=== PATIENT | female | born 1975 | race Caucasian/White ===

== ENCOUNTER 2017-08-11 19:59 | Inpatient (IN) | payer BC ==
[2017-08-11] MEDS ORDERED: SODIUM CHLORIDE 0.9% 1,000 ML IV STA ×2 (21:18)
[2017-08-11] MEDS ORDERED: HYDROmorphone 1 MG/ML 1 ML SYRINGE IVP STA (21:18)
[2017-08-11] MEDS ORDERED: metroNIDAZOLE-NS PMX 500 MG in SALINE 1 100ML.BAG IVPB STA (21:18)
[2017-08-11] MEDS ORDERED: ONDANSETRON 4 MG/2 ML VIAL IVP STA (21:18)
[2017-08-11] MEDS ORDERED: RX INFO: IV CONTRAST WAS GIVEN 1 EACH MISC MISCELLANE PRN (21:18)
[2017-08-11] MEDS ORDERED: metroNIDAZOLE 500 MG TAB PO STA (21:25)
[2017-08-11 21:58] LABS: Basophils % (A) 0 %; CH 31.4; CHCM 35.4; Eosinophils # (A) 0.1 k/uL (0-0.7); Eosinophils % (A) 1 %; HCT 38.1 % (34.0-46.0); HDW 2.88; HGB 12.8 gm/dL (11.4-16.0); Luc # (Auto) 0.06; Luc % (Auto) 1; Lymphocytes # (A) 0.8 k/uL (1.0-4.8); Lymphocytes % (A) 10 %; MCHC 33.7 g/dL (31.0-37.0); MCV 89.1 fL (80.0-100.0); Mean Platelet Volume 7.4; Monocytes # (A) 0.3 k/uL (0-1.0); Monocytes % (A) 4 %; Neutrophils # (A) 6.5 k/uL (1.3-7.7); Neutrophils % (A) 84 %; RBC 4.28 m/uL (3.80-5.40); RDW 15.4 % (11.5-15.5); WBC 7.7 k/uL (3.8-10.6); WBC (Perox) 8.34
[2017-08-11 22:07] LABS: ALT 34 U/L (9-52); AST 24 U/L (14-36); Alkaline Phosphatase 67 U/L (38-126); Amylase 34 U/L (30-110); Anion Gap 11 mmol/L; Appearance,Urine Cloudy (Clear); Bacteria,Urine Rare /hpf; Bilirubin,Urine Negative (Negative); Blood Urea Nitrogen 12 mg/dL (7-17); Calcium 9.2 mg/dL (8.4-10.2); Carbon Dioxide 21 mmol/L (22-30); Chloride 104 mmol/L (98-107); Glucose 120 mg/dL (74-99); Glucose,Urine (UA) Negative (Negative); Ketones,Urine Trace (Negative); Leukocyte Esterase,Urine Moderate (Negative); Mucus,Urine Occasional /hpf; Nitrite,Urine Negative (Negative); Non-African American GFR(MDRD) >60 (>60 ml/min/1.73 sqM); PH, Urine 5.5 (5.0-8.0); Particle Count 9858; Protein,Urine Trace (Negative); RBC,Urine 1 /hpf (0-5); Sodium 136 mmol/L (137-145); Specific Gravity,Urine 1.025 (1.001-1.035); Squamous Epithelial Cell,Urine 8 /hpf (0-4); Total Bilirubin 0.6 mg/dL (0.2-1.3); UA Billing (MACRO vs. MICRO) MICRO; Urobilinogen,Urine <2.0 mg/dL (<2.0); WBC,Urine 8 /hpf (0-5)
--- NOTE | 2017-08-11 22:08 | ED ---
Abdominal Pain HPI - General Chief Complaint: Abdominal Pain Stated Complaint: Abd Pain Time Seen by Provider: 08/11/17 21:10 Source: patient Mode of arrival: ambulatory Limitations: no limitations - History of Present Illness Initial Comments: 42 years old female presented with right lower quadrant pain since 4:30 AM, she also had some pain around the umbilicus, been nauseous throughout multiple times. She had a family doctor today was sent to ER for further evaluation thinking about possible appendicitis. She had a fever or had chills and nausea and vomiting she also history of ovarian cysts she denies any history of kidney stones denies any diarrhea or constipation. History is unremarkable otherwise - Related Data Home Medications Medication Instructions Recorded Confirmed Norethindrone-E.estradiol-Iron 1 tab PO DAILY 08/11/17 08/11/17 [Junel Fe 1 mg-20 Mcg Tablet] Allergies Allergy/AdvReac Type Severity Reaction Status Date / Time Penicillins Allergy Anaphylaxis Verified 08/11/17 21:27 Sulfa (Sulfonamide Allergy Rash/Hives Verified 08/11/17 21:27 Antibiotics) Review of Systems ROS Statement: Those systems with pertinent positive or pertinent negative responses have been documented in the HPI. ROS Other: All systems not noted in ROS Statement are negative. Past Medical History Past Medical History: Asthma, Diabetes Mellitus History of Any Multi-Drug Resistant Organisms: None Reported Past Surgical History: Orthopedic Surgery Additional Past Surgical History / Comment(s): left wrist Past Psychological History: No Psychological Hx Reported Smoking Status: Former smoker Past Alcohol Use History: None Reported Past Drug Use History: None Reported General Exam - General Exam Comments Initial Comments: General: The patient is awake and alert, in severe distress Skin: Skin is warm and dry and no rashes or lesions are noted. Eye: Pupils are equal, round and reactive to light, extra-ocular movements are intact; there is normal conjunctiva bilaterally. Ears, nose, mouth and throat: There are moist mucous membranes and no oral lesions. Neck: The neck is supple, there is no tenderness or JVD. Cardiovascular: There is a regular rate and rhythm. No murmur, rub or gallop is appreciated. Respiratory: To auscultation bilateral, no wheezing no rhonchi no distress respiratory chang noticed Gastrointestinal: Tender in the right lower quadrant area as well as paraumbilical area positive bowel sounds no guarding no rebounds Back: There is no tenderness to palpation in the midline. There is no obvious deformity. Musculoskeletal: Normal ROM, no tenderness, There is no pedal edema. There is no calf tenderness or swelling. No cords were appreciated. Neurological: CN II-XII intact, Cranial nerves III through XII are intact. There are no obvious motor or sensory deficits. Coordination appears grossly intact. Speech is normal. Psychiatric: Cooperative, appropriate mood & affect, normal judgment. Limitations: no limitations Course Vital Signs 08/11/17 08/11/17 08/11/17 21:11 21:52 23:00 Temperature 98.9 F Pulse Rate 116 H 105 H 96 Respiratory 18 16 16 Rate Blood Pressure 157/92 124/70 140/79 O2 Sat by Pulse 96 96 98 Oximetry Vision was reassessed at 2315, CT of the abdomen showed right lower quadrant mesenteric soft tissue stranding and hazy opacity suggesting present headache inflammatory and advance changes and may reflect inflammatory changes of the base anteriorly and recommended short-term CT follow-up, these findings were discussed with the Dr. Lundy general surgeon physics and astronomy professor today he agreed for her overnight admission for CBC, urinalysis and chemistry are within normal range though C-reactive protein is elevated Medical Decision Making - Lab Data Result diagrams: 08/11/17 21:30 08/11/17 21:30 Lab Results 08/11/17 08/11/17 08/11/17 Range/Units 21:30 21:30 21:30 WBC 7.7 (3.8-10.6) k/uL RBC 4.28 (3.80-5.40) m/uL Hgb 12.8 (11.4-16.0) gm/dL Hct 38.1 (34.0-46.0) % MCV 89.1 (80.0-100.0) fL MCH 30.0 (25.0-35.0) pg MCHC 33.7 (31.0-37.0) g/dL RDW 15.4 (11.5-15.5) % Plt Count 246 (150-450) k/uL Neutrophils % 84 % Lymphocytes % 10 % Monocytes % 4 % Eosinophils % 1 % Basophils % 0 % Neutrophils # 6.5 (1.3-7.7) k/uL Lymphocytes # 0.8 L (1.0-4.8) k/uL Monocytes # 0.3 (0-1.0) k/uL Eosinophils # 0.1 (0-0.7) k/uL Basophils # 0.0 (0-0.2) k/uL Sodium 136 L (137-145) mmol/L Potassium 4.0 (3.5-5.1) mmol/L Chloride 104 (98-107) mmol/L Carbon Dioxide 21 L (22-30) mmol/L Anion Gap 11 mmol/L BUN 12 (7-17) mg/dL Creatinine 0.64 (0.52-1.04) mg/dL Est GFR (MDRD) Af Amer >60 (>60 ml/min/1.73 sqM) Est GFR (MDRD) Non-Af >60 (>60 ml/min/1.73 sqM) Glucose 120 H (74-99) mg/dL Calcium 9.2 (8.4-10.2) mg/dL Total Bilirubin 0.6 (0.2-1.3) mg/dL AST 24 (14-36) U/L ALT 34 (9-52) U/L Alkaline Phosphatase 67 (38-126) U/L C-Reactive Protein (<10.0) mg/L Total Protein 7.0 (6.3-8.2) g/dL Albumin 4.1 (3.5-5.0) g/dL Amylase 34 (30-110) U/L Lipase 106 (23-300) U/L Urine Color Yellow Urine Appearance Cloudy H (Clear) Urine pH 5.5 (5.0-8.0) Ur Specific [place] 1.025 (1.001-1.035) Urine Protein Trace H (Negative) Urine Glucose (UA) Negative (Negative) Urine Ketones Trace H (Negative) Urine Blood Negative (Negative) Urine Nitrite Negative (Negative) Urine Bilirubin Negative (Negative) Urine Urobilinogen <2.0 (<2.0) mg/dL Ur Leukocyte Esterase Moderate H (Negative) Urine RBC 1 (0-5) /hpf Urine WBC 8 H (0-5) /hpf Ur Squamous Epith Cells 8 H (0-4) /hpf Urine Bacteria Rare H (None) /hpf Urine Mucus Occasional H (None) /hpf Urine HCG, Qual (Not Detectd) 08/11/17 08/11/17 Range/Units 21:30 21:30 WBC (3.8-10.6) k/uL RBC (3.80-5.40) m/uL Hgb (11.4-16.0) gm/dL Hct (34.0-46.0) % MCV (80.0-100.0) fL MCH (25.0-35.0) pg MCHC (31.0-37.0) g/dL RDW (11.5-15.5) % Plt Count (150-450) k/uL Neutrophils % % Lymphocytes % % Monocytes % % Eosinophils % % Basophils % % Neutrophils # (1.3-7.7) k/uL Lymphocytes # (1.0-4.8) k/uL Monocytes # (0-1.0) k/uL Eosinophils # (0-0.7) k/uL Basophils # (0-0.2) k/uL Sodium (137-145) mmol/L Potassium (3.5-5.1) mmol/L Chloride (98-107) mmol/L Carbon Dioxide (22-30) mmol/L Anion Gap mmol/L BUN (7-17) mg/dL Creatinine (0.52-1.04) mg/dL Est GFR (MDRD) Af Amer (>60 ml/min/1.73 sqM) Est GFR (MDRD) Non-Af (>60 ml/min/1.73 sqM) Glucose (74-99) mg/dL Calcium (8.4-10.2) mg/dL Total Bilirubin (0.2-1.3) mg/dL AST (14-36) U/L ALT (9-52) U/L Alkaline Phosphatase (38-126) U/L C-Reactive Protein 51.2 H (<10.0) mg/L Total Protein (6.3-8.2) g/dL Albumin (3.5-5.0) g/dL Amylase (30-110) U/L Lipase (23-300) U/L Urine Color Urine Appearance (Clear) Urine pH (5.0-8.0) Ur Specific [place] (1.001-1.035) Urine Protein (Negative) Urine Glucose (UA) (Negative) Urine Ketones (Negative) Urine Blood (Negative) Urine Nitrite (Negative) Urine Bilirubin (Negative) Urine Urobilinogen (<2.0) mg/dL Ur Leukocyte Esterase (Negative) Urine RBC (0-5) /hpf Urine WBC (0-5) /hpf Ur Squamous Epith Cells (0-4) /hpf Urine Bacteria (None) /hpf Urine Mucus (None) /hpf Urine HCG, Qual Not Detected (Not Detectd) Disposition Clinical Impression: Right lower quadrant pain Disposition: ADMITTED IP TO THIS HOSP Condition: Good Referrals: Baldomero Truong MD [Primary Care Provider] - 1-2 days
--- NOTE | 2017-08-11 23:38 | CT ---
EXAM: CT Abdomen and Pelvis With Intravenous Contrast CLINICAL HISTORY: Reason: abdominal pain TECHNIQUE: Axial computed tomography images of the abdomen and pelvis with intravenous contrast. CTDI is 51.4 mGy and DLP is 2236 mGy-cm. This CT exam was performed using one or more of the following dose reduction techniques: automated exposure control, adjustment of the mA and/or kV according to patient size, and/or use of iterative reconstruction technique. COMPARISON: No relevant prior studies available. FINDINGS: Lower thorax: No acute findings. ABDOMEN: Liver: Fatty infiltration of the liver Gallbladder and bile ducts: Unremarkable. No calcified stones. No ductal dilation. Pancreas: Unremarkable. No mass. No ductal dilation. Spleen: Hypodense area within the spleen measuring 1.1 cm which is a nonspecific finding Adrenals: Unremarkable. No mass. Kidneys and ureters: No evidence of renal calculi or hydronephrosis. Small subcentimeter low-density lung mid zone to lower pole right kidney suggesting probable very small renal cyst, but too small for definitive CT characterization. Stomach and bowel: No evidence of bowel obstruction or pneumoperitoneum. Scattered colonic diverticulosis. No definite evidence of diverticulitis, although colonic evaluation is somewhat limited due to nondistention of colon. Focal confluence of nondilated small bowel loops in the left upper pelvis which is nonspecific. No definite focal mass identified although evaluation somewhat limited due to lack of GI contrast Appendix: Normal appendix PELVIS: Bladder: Unremarkable. No mass. Reproductive: Unremarkable as visualized. ABDOMEN and PELVIS: Intraperitoneal space: There is mild soft tissue stranding and hazy opacity involving mesentery extending to the right lower quadrant suggesting mesenteric inflammatory or dense changes. There are several very small subcentimeter lymph nodes most likely reactive. Bones/joints: No acute bony abnormalities. Soft tissues: Small fat-containing umbilical hernia. Vasculature: Unremarkable. No abdominal aortic aneurysm. Lymph nodes: No enlarged lymph nodes. IMPRESSION: Right lower quadrant mesenteric soft tissue stranding and hazy opacity suggesting mesenteric inflammatory or edematous changes which are nonspecific and may reflect mesenteritis. Clinical correlation and short- term CT follow-up recommended. No evidence of bowel obstruction or pneumoperitoneum. Normal-appearing appendix identified. Small splenic low density lesion which is nonspecific possibly representing splenic cyst Colonic diverticulosis without evidence of diverticulitis. [employer] 08/11/17 23:53 Verify Receipt Verified receipt with Dr. Fine on 08/11 23:51 (-04:00)
[2017-08-12] MEDS ORDERED: ONDANSETRON 4 MG/2 ML VIAL IVP PRN (00:31)
[2017-08-12] MEDS ORDERED: NALOXONE 0.4 MG/ML 1 ML VIAL IV PRN (00:31)
[2017-08-12] MEDS ORDERED: HYDROmorphone 1 MG/ML 1 ML SYRINGE IV PRN (00:31)
[2017-08-12 01:25] VITALS: RESP 18
[2017-08-12 01:27] VITALS: BMI 40.4
[2017-08-12 01:36] LABS: Glucose,Whole Blood 108 mg/dL (75-99)
[2017-08-12 07:00] LABS: Glucose,Whole Blood 130 mg/dL (75-99)
[2017-08-12 08:10] VITALS: BP 137/87; PULSE 96; TEMP 97.8
[2017-08-12] MEDS ORDERED: ACETAMINOPHEN TAB 325 MG TAB PO PRN (10:29)
--- NOTE | 2017-08-12 11:44 | P.GSHP ---
<Samanta Rodgers - Last Filed: 08/12/17 11:36> History of Present Illness H&P Date: 08/12/17 Chief Complaint: Abdominal pain 42-year-old female presented with right lower quadrant pain onset 4:30 in the morning. Patient stated the pain went around the umbilicus. Patient states she became nauseated multiple times but did not vomit. Patient stated she contact her family doctor who advised the patient to come to the emergency room for further evaluation. Patient stated history of ovarian cyst.,and Kidney stone. reported no fever chills. Patient stated that she did have an episode last week after having 2 bowel movements noted bright red blood in the toilet bowl movement was painless . Patient stated that no been no further episodes . Patient states she has never had a colonoscopy. Subsequent the patient was seen in the emergency room. CAT scan of the abdomen and pelvis showed a right lower quadrant soft tissue straining suggesting inflammatory. Dr. Bazzi did review the CAT scan of the abdomen pelvis felt there was no acute surgical intervention and there was no acute abdomen. Patient was admitted to the services of the attending. IV hydration was initiated. Hemoglobin stable at 12.8 . - Review of Systems Comment: Essentially unremarkable except as mentioned in the present illness Past Medical History Past Medical History: Asthma, Diabetes Mellitus History of Any Multi-Drug Resistant Organisms: None Reported Past Surgical History: Orthopedic Surgery Additional Past Surgical History / Comment(s): left wrist Past Psychological History: No Psychological Hx Reported Smoking Status: Never smoker Past Alcohol Use History: None Reported Past Drug Use History: None Reported Medications and Allergies Home Medications Medication Instructions Recorded Confirmed Type RX: Norethindrone-E.estradiol-Iron 1 tab PO DAILY 08/11/17 08/11/17 History [Junel Fe 1 mg-20 Mcg Tablet] Allergies Allergy/AdvReac Type Severity Reaction Status Date / Time Penicillins Allergy Anaphylaxis Verified 08/11/17 21:27 Sulfa (Sulfonamide Allergy Rash/Hives Verified 08/11/17 21:27 Antibiotics) Surgical - Exam Vital Signs Temp Pulse Resp BP Pulse Ox 98.9 F 116 H 18 157/92 96 08/11/17 21:11 08/11/17 21:11 08/11/17 21:11 08/11/17 21:11 08/11/17 21:11 GENERAL APPEARANCE: 42-year-old female patient is alert, oriented, in no acute distress. VITAL SIGNS: Reviewed HEENT: Head is normocephalic and atraumatic. Pupils are equal and reactive. The nares are patent. Oropharynx is clear without lesions. NECK: Supple without lymphadenopathy. Traches midline. HEART: S1, S2. Regular rate and rhythm. Denying chest pain no murmur LUNGS: No crackles or wheezes are heard. Adequate air movement bilaterally ABDOMEN: Soft, nontender, nondistended with good bowel sounds. No peritoneal signs. No palpable organomegaly or masses. EXTREMITIES: Normal skin color and turgor. No cyanosis, rash, ulceration, clubbing or edema. Radial pedal pulses are 2/4 bilaterally. NEUROLOGICAL: No focal deficits. Strength and sensation are grossly intact. Results - Labs 08/11/17 21:30 08/11/17 21:30 Abnormal Lab Results - Last 24 Hours (Table) 08/11/17 08/11/17 08/11/17 Range/Units 21:30 21:30 21:30 Lymphocytes # 0.8 L (1.0-4.8) k/uL Sodium 136 L (137-145) mmol/L Carbon Dioxide 21 L (22-30) mmol/L Glucose 120 H (74-99) mg/dL POC Glucose (mg/dL) (75-99) mg/dL C-Reactive Protein (<10.0) mg/L Urine Appearance Cloudy H (Clear) Urine Protein Trace H (Negative) Urine Ketones Trace H (Negative) Ur Leukocyte Esterase Moderate H (Negative) Urine WBC 8 H (0-5) /hpf Ur Squamous Epith Cells 8 H (0-4) /hpf Urine Bacteria Rare H (None) /hpf Urine Mucus Occasional H (None) /hpf 08/11/17 08/12/17 08/12/17 Range/Units 21:30 01:33 06:57 Lymphocytes # (1.0-4.8) k/uL Sodium (137-145) mmol/L Carbon Dioxide (22-30) mmol/L Glucose (74-99) mg/dL POC Glucose (mg/dL) 108 H 130 H (75-99) mg/dL C-Reactive Protein 51.2 H (<10.0) mg/L Urine Appearance (Clear) Urine Protein (Negative) Urine Ketones (Negative) Ur Leukocyte Esterase (Negative) Urine WBC (0-5) /hpf Ur Squamous Epith Cells (0-4) /hpf Urine Bacteria (None) /hpf Urine Mucus (None) /hpf Diabetes panel 08/11/17 Range/Units 21:30 Sodium 136 L (137-145) mmol/L Potassium 4.0 (3.5-5.1) mmol/L Chloride 104 (98-107) mmol/L Carbon Dioxide 21 L (22-30) mmol/L BUN 12 (7-17) mg/dL Creatinine 0.64 (0.52-1.04) mg/dL Glucose 120 H (74-99) mg/dL Calcium 9.2 (8.4-10.2) mg/dL AST 24 (14-36) U/L ALT 34 (9-52) U/L Alkaline Phosphatase 67 (38-126) U/L Total Protein 7.0 (6.3-8.2) g/dL Albumin 4.1 (3.5-5.0) g/dL Calcium panel 08/11/17 Range/Units 21:30 Calcium 9.2 (8.4-10.2) mg/dL Albumin 4.1 (3.5-5.0) g/dL Pituitary panel 08/11/17 Range/Units 21:30 Sodium 136 L (137-145) mmol/L Potassium 4.0 (3.5-5.1) mmol/L Chloride 104 (98-107) mmol/L Carbon Dioxide 21 L (22-30) mmol/L BUN 12 (7-17) mg/dL Creatinine 0.64 (0.52-1.04) mg/dL Glucose 120 H (74-99) mg/dL Calcium 9.2 (8.4-10.2) mg/dL Adrenal panel 08/11/17 Range/Units 21:30 Sodium 136 L (137-145) mmol/L Potassium 4.0 (3.5-5.1) mmol/L Chloride 104 (98-107) mmol/L Carbon Dioxide 21 L (22-30) mmol/L BUN 12 (7-17) mg/dL Creatinine 0.64 (0.52-1.04) mg/dL Glucose 120 H (74-99) mg/dL Calcium 9.2 (8.4-10.2) mg/dL Total Bilirubin 0.6 (0.2-1.3) mg/dL AST 24 (14-36) U/L ALT 34 (9-52) U/L Alkaline Phosphatase 67 (38-126) U/L Total Protein 7.0 (6.3-8.2) g/dL Albumin 4.1 (3.5-5.0) g/dL Assessment and Plan Plan: Impression Present on admission right lower quadrant pain nausea vomiting suspect gastroenteritis not ruled out Episode week prior painless bright red rectal bleeding after bowel movement CAT scan abdomen and pelvis: Diverticulosis no evidence of diverticulitis CAT scan abdomen and pelvis soft mild tissue straining and hazy opacity involving mesentery extending to the right colon suggesting inflammatory are dense changes Plan Dr. bazzi discuss with the patient and patient's mother no surgical intervention at this time Advance diet if tolerated will prepped for discharge today Patient will need to be scheduled in the outpatient setting to undergo colonoscopy this can be arranged by patient's primary doctor Dr. Truong Resume home meds as appropriate IV hydration Prepped for discharge The above impression and plan of care have been discussed and directed by signing physician. Samanta Rodgers nurse practitioner acting as scribe for signing physician. <Remy Bazzi W - Last Filed: 08/13/17 10:29> Surgical - Exam Vital Signs Temp Pulse Resp BP Pulse Ox 98.9 F 116 H 18 157/92 96 08/11/17 21:11 08/11/17 21:11 08/11/17 21:11 08/11/17 21:11 08/11/17 21:11 Results - Labs 08/11/17 21:30 08/11/17 21:30 Microbiology - Last 24 Hours (Table) 08/11/17 21:30 Blood Culture - Preliminary Blood No Growth after 24 hours
--- NOTE | 2017-08-12 11:49 | P.DS ---
Providers Date of admission: 08/12/17 00:31 Expected date of discharge: 08/12/17 Attending physician: Remy Lundy Primary care physician: Baldomero Truong [facility] Course: 42-year-old female presented to the emergency room to be evaluated for chief complaint of sudden onset right lower quadrant pain radiating around the umbilicus with nausea vomiting sensation. Additionally patient stated that week prior she had 2 bowel movements were painless did note bright red blood in the toilet bowl no prior episode no further episodes as well patient was seen in the emergency room evaluated CAT scan of the abdomen pelvis did not show any acute findings did suggest an inflammatory changes no evidence of diverticulitis no evidence of an acute abdomen. Hemoglobin was stable at 12.8. Patient symptoms had resolved on the day of discharge patient denied any right lower quadrant pain was tolerating a full diet was anxious to be discharged home. Patient is aware that she needs to schedule colonoscopy to be done in the outpatient setting this can be arranged by Dr. Truong office subsequently the patient was felt to be hemodynamically stable and appropriate proceed with a discharge to home Impression Present on admission right lower quadrant pain nausea vomiting suspect gastroenteritis not ruled out Episode week prior painless bright red rectal bleeding after bowel movement CAT scan abdomen and pelvis: Diverticulosis no evidence of diverticulitis CAT scan abdomen and pelvis soft mild tissue straining and hazy opacity involving mesentery extending to the right colon suggesting inflammatory are dense changes The above impression and plan of care have been discussed and directed by signing physician. Samanta Rodgers nurse practitioner acting as scribe for signing physician. Patient Condition at Discharge: Good Plan - Discharge Summary New Discharge Prescriptions: Continue RX: Norethindrone-E.estradiol-Iron [Junel Fe 1 mg-20 Mcg Tablet] 1 tab PO DAILY Discharge Medication List RX: Norethindrone-E.estradiol-Iron [Junel Fe 1 mg-20 Mcg Tablet] 1 tab PO DAILY 08/11/17 [History] Follow up Appointment(s)/Referral(s): Baldomero Truong MD [Primary Care Provider] - 1-2 days Discharge Disposition: HOME SELF-CARE
== END 2017-08-12 11:55 | disposition home or self-care (01) | DRG 392 ==
LOC: EC 19:59 → 4MS4W 08-12 00:31
PROVIDERS: ADMIT Surgery; ATTEND Surgery
DX: K52.9 Noninfective gastroenteritis and colitis, unspecified (principal); E11.9 Type 2 diabetes mellitus without complications; J45.909 Unspecified asthma, uncomplicated; K57.90 Diverticulosis of intestine, part unspecified, without perforation or abscess without bleeding; N83.209 Unspecified ovarian cyst, unspecified side; Z87.442 Personal history of urinary calculi; Z87.891 Personal history of nicotine dependence; Z88.0 Allergy status to penicillin; Z88.2 Allergy status to sulfonamides
CPT/HCPCS: 36415; 74177; 80053; 81001; 81025; 82150; 83690; 85025; 86140; 87040; 96361; 96365; 96375; 99285

== ENCOUNTER 2018-07-06 22:55 | Emergency (ER) | payer BC ==
[2018-07-06 23:08] VITALS: TEMP 98.3
--- NOTE | 2018-07-06 23:51 | ED ---
General Adult HPI - General Chief complaint: Extremity Injury, Upper Stated complaint: right hand pain Time Seen by Provider: 07/06/18 23:39 Source: patient Mode of arrival: ambulatory Limitations: no limitations - History of Present Illness Initial comments: Judie is a previously healthy right hand dominant 43-year-old female who presents to the ED for evaluation of right hand pain after a fall. Patient reports that she had a mechanical trip and fall in which she put her right hand out falling onto her right hand. She is experiencing significant pain in her right thenar eminence and right wrist. She denies any other injuries. - Related Data Home Medications Medication Instructions Recorded Confirmed Norethindrone-E.estradiol-Iron 1 tab PO DAILY 08/11/17 08/11/17 [Junel Fe 1 mg-20 Mcg Tablet] Allergies Allergy/AdvReac Type Severity Reaction Status Date / Time Penicillins Allergy Anaphylaxis Verified 07/06/18 23:08 Sulfa (Sulfonamide Allergy Rash/Hives Verified 07/06/18 23:08 Antibiotics) Review of Systems ROS Statement: Those systems with pertinent positive or pertinent negative responses have been documented in the HPI. ROS Other: All systems not noted in ROS Statement are negative. Past Medical History Past Medical History: Asthma, Diabetes Mellitus History of Any Multi-Drug Resistant Organisms: None Reported Past Surgical History: Orthopedic Surgery Additional Past Surgical History / Comment(s): left wrist Past Psychological History: No Psychological Hx Reported Smoking Status: Never smoker Past Alcohol Use History: None Reported Past Drug Use History: None Reported General Exam Limitations: no limitations General appearance: alert, in no apparent distress Head exam: Present: atraumatic, normocephalic Eye exam: Present: PERRL ENT exam: Present: normal exam Neck exam: Present: normal inspection. Absent: tenderness Respiratory exam: Absent: respiratory distress Cardiovascular Exam: Present: regular rate, normal rhythm GI/Abdominal exam: Present: soft. Absent: distended Rectal exam: Present: deferred Extremities exam: Present: tenderness (Tenderness to palpation of right wrist), normal capillary refill Neurological exam: Present: alert, oriented X3 Psychiatric exam: Present: normal affect, normal mood Skin exam: Present: warm, dry, intact Course Vital Signs 07/06/18 07/07/18 23:05 01:13 Temperature 98.3 F 98.3 F Pulse Rate 107 H 98 Respiratory 16 17 Rate Blood Pressure 163/103 165/100 O2 Sat by Pulse 98 98 Oximetry Procedures - Orthopedic Splinting/Casting Injury #1 Side: right Upper Extremity Immobilizer: thumb spica Medical Decision Making - Medical Decision Making Carey is obtained from the patient, patient with mechanical trip and fall onto her right outstretched hand, pain in the right hand and wrist X-rays and no obvious fracture Patient with persistent pain, patient was placed in a thumb spica splint and advised that if she has persistent pain after 72 hours to follow-up with PCP for repeat imaging Possibility of occult fracture was discussed with the patient, the importance of follow-up and repeat imaging for persistent pain was discussed. Risk of avascular necrosis for untreated fracture was discussed. All questions pertaining care were answered best my ability patient was discharged home with her right hand in a thumb spica splint. Disposition Clinical Impression: Wrist sprain Disposition: HOME SELF-CARE Instructions: Wrist Injury (ED) Additional Instructions: If you have persistent pain in the right wrist follow-up with her PCP or return to the ER in 3 days for repeat x-rays Is patient prescribed a controlled substance at d/c from ED?: No Referrals: Baldomero Truong MD [Primary Care Provider] - 1-2 days Time of Disposition: 00:50
--- NOTE | 2018-07-07 00:20 | XR ---
EXAMINATION TYPE: XR hand complete RT DATE OF EXAM: 07/07/2018 COMPARISON: NONE HISTORY: Pain TECHNIQUE: 3 views FINDINGS: I see no fracture nor dislocation. Joint spaces are normal. Some appears intact. IMPRESSION: Negative right hand exam.
--- NOTE | 2018-07-07 00:21 | XR ---
EXAMINATION TYPE: XR wrist complete RT DATE OF EXAM: 07/07/2018 COMPARISON: NONE HISTORY: Wrist pain TECHNIQUE: 4 views FINDINGS: There is no sign of fracture nor dislocation. Joint spaces are normal. Scaphoid is intact. IMPRESSION: Negative right wrist exam.
[2018-07-07 01:18] VITALS: BP 165/100; PULSE 98; RESP 17
== END 2018-07-07 01:18 | disposition home or self-care (01) ==
LOC: EC 22:55
DX: S63.501A Unspecified sprain of right wrist, initial encounter (principal); Z79.3 Long term (current) use of hormonal contraceptives; Z88.0 Allergy status to penicillin; Z88.2 Allergy status to sulfonamides; W01.0XXA Fall on same level from slipping, tripping and stumbling without subsequent striking against object, initial encounter; Y92.009 Unspecified place in unspecified non-institutional (private) residence as the place of occurrence of the external cause
CPT/HCPCS: 29125; 99283

== ENCOUNTER → 2018-07-14 | Outpatient (CLI) | payer BC ==
[2018-07-14 11:16] LABS: Basophils % (A) 0 %; Eosinophils # (A) 0.1 k/uL (0-0.7); Eosinophils % (A) 1 %; HCT 41.8 % (34.0-46.0); HGB 13.1 gm/dL (11.4-16.0); Lymphocytes # (A) 1.8 k/uL (1.0-4.8); Lymphocytes % (A) 22 %; MCH 28.6 pg (25.0-35.0); MCHC 31.4 g/dL (31.0-37.0); MCV 91.1 fL (80.0-100.0); Mean Platelet Volume 6.4; Monocytes # (A) 0.4 k/uL (0-1.0); Monocytes % (A) 5 %; Neutrophils # (A) 5.7 k/uL (1.3-7.7); Neutrophils % (A) 70 %; Platelet Count 336 k/uL (150-450); RBC 4.59 m/uL (3.80-5.40); WBC 8.1 k/uL (3.8-10.6)
[2018-07-14 11:37] LABS: ALT 24 U/L (9-52); AST 17 U/L (14-36); Alkaline Phosphatase 59 U/L (38-126); Anion Gap 10 mmol/L; Blood Urea Nitrogen 13 mg/dL (7-17); Calcium 9.3 mg/dL (8.4-10.2); Carbon Dioxide 21 mmol/L (22-30); Chloride 107 mmol/L (98-107); Cholesterol 147 mg/dL (<200); Glucose 140 mg/dL (74-99); HDL Cholesterol 37 mg/dL (40-60); LDL Cholesterol,Calculated 49 mg/dL (0-99); Potassium 4.8 mmol/L (3.5-5.1); Sodium 138 mmol/L (137-145); Total Bilirubin 0.4 mg/dL (0.2-1.3); Total Protein 6.9 g/dL (6.3-8.2); Triglycerides 306 mg/dL (<150)
== END | disposition home or self-care (01) ==
LOC: LABWHC1 10:22
PROVIDERS: ATTEND Family Medicine
DX: Z00.00 Encounter for general adult medical examination without abnormal findings (principal)
CPT/HCPCS: 36415; 80053; 80061; 84443; 85025

== ENCOUNTER → 2019-04-22 | Outpatient (CLI) | payer BC ==
[2019-04-22 11:34] LABS: Basophils % (A) 1 %; Eosinophils # (A) 0.1 k/uL (0-0.7); Eosinophils % (A) 1 %; HCT 47.2 % (34.0-46.0); HGB 14.8 gm/dL (11.4-16.0); Lymphocytes # (A) 1.2 k/uL (1.0-4.8); Lymphocytes % (A) 21 %; MCH 28.5 pg (25.0-35.0); MCHC 31.3 g/dL (31.0-37.0); MCV 91.1 fL (80.0-100.0); Mean Platelet Volume 7.1; Monocytes # (A) 0.3 k/uL (0-1.0); Monocytes % (A) 6 %; Neutrophils # (A) 3.8 k/uL (1.3-7.7); Neutrophils % (A) 69 %; Platelet Count 292 k/uL (150-450); RBC 5.18 m/uL (3.80-5.40); RDW 14.5 % (11.5-15.5); WBC 5.5 k/uL (3.8-10.6)
[2019-04-22 16:07] LABS: Albumin 4.5 g/dL (3.80-4.90); Albumin/Globulin Ratio 2.14 (1.60-3.17); Anion Gap 13.2 mmol/L (4.00-12.00); Calcium 9.3 mg/dL (8.7-10.3); Carbon Dioxide 17.8 mmol/L (21.6-31.8); Globulin 2.1 g/dL (1.6-3.3); Potassium 4.2 mmol/L (3.5-5.5); Total Bilirubin 0.4 mg/dL (0.2-1.2); Total Protein 6.6 g/dL (6.2-8.2)
== END | disposition home or self-care (01) ==
LOC: LABWHC1 09:57
PROVIDERS: ATTEND Family Medicine
DX: Z00.00 Encounter for general adult medical examination without abnormal findings (principal)
CPT/HCPCS: 36415; 80053; 80061; 84443; 85025

== ENCOUNTER 2019-09-27 02:29 | Emergency (ER) | payer BC ==
[2019-09-27] MEDS ORDERED: diphenhydrAMINE 50 MG/ML 1 ML VIAL IVP STA (02:51)
[2019-09-27] MEDS ORDERED: methylPREDNISolone SOD SUCCI 125 MG/2 ML VIAL IV STA (02:51)
[2019-09-27] MEDS ORDERED: FAMOTIDINE 20 MG/2 ML VIAL IV STA (02:51)
--- NOTE | 2019-09-27 05:36 | ED ---
Allergic Reaction HPI - General Chief complaint: Allergic Reaction Stated complaint: Allergic reaction,DOUG, lip swelling Time Seen by Provider: 09/27/19 02:38 Source: patient Mode of arrival: ambulatory Limitations: no limitations - History of Present Illness Initial Comments: This patient is a 44-year-old woman who presents to be valid for upper lip sw elling. The patient states that this came on approximately 1-2 hours ago. She did try taking some Benadryl at home but felt like the swelling was only increasing. She states that she did have a similar episode of this about a year ago and states that it only resolved after she was given dose of epinephrine. The patient does take low-dose lisinopril. She is not having any other symptoms, no cough or throat swelling. No dyspnea. No nausea or vomiting. No urticaria or pruritus. MD Complaint: facial swelling -: hour(s) Exposure: unknown Symptoms: lip swelling Severity: moderate Treatment Prior to Arrival: benadryl Previous Allergy History: angioedema - Related Data Home Medications Medication Instructions Recorded Confirmed Norethindrone-E.estradiol-Iron 1 tab PO DAILY 08/11/17 08/11/17 [Junel Fe 1 mg-20 Mcg Tablet] Previous Rx's Medication Instructions Recorded predniSONE 60 mg PO DAILY #30 tab 09/27/19 Allergies Allergy/AdvReac Type Severity Reaction Status Date / Time Penicillins Allergy Anaphylaxis Verified 09/27/19 02:35 Sulfa (Sulfonamide Allergy Rash/Hives Verified 09/27/19 02:35 Antibiotics) Review of Systems ROS Statement: Those systems with pertinent positive or pertinent negative responses have been documented in the HPI. ROS Other: All systems not noted in ROS Statement are negative. Constitutional: Denies: fever, chills ENT: Denies: throat pain, congestion Respiratory: Denies: cough, dyspnea, wheezes Cardiovascular: Denies: palpitations Gastrointestinal: Denies: nausea, vomiting, diarrhea Skin: Denies: rash Neurological: Denies: headache Past Medical History Past Medical History: Asthma, Diabetes Mellitus, Hypertension History of Any Multi-Drug Resistant Organisms: None Reported Past Surgical History: Orthopedic Surgery Additional Past Surgical History / Comment(s): left wrist, Past Psychological History: No Psychological Hx Reported Smoking Status: Never smoker Past Alcohol Use History: None Reported Past Drug Use History: None Reported General Exam Limitations: no limitations General appearance: alert, in no apparent distress Head exam: Present: atraumatic, normocephalic Eye exam: Present: normal appearance. Absent: scleral icterus, conjunctival injection ENT exam: Present: other (Patient does have some angioedema involving the left side of the upper lip. No intraoral swelling or tongue swelling. No submandibular or neck fullness.) Neck exam: Present: normal inspection Respiratory exam: Present: normal lung sounds bilaterally. Absent: respiratory distress, wheezes, rales, rhonchi, stridor Cardiovascular Exam: Present: regular rate, normal rhythm, normal heart sounds. Absent: systolic murmur, diastolic murmur, rubs, gallop GI/Abdominal exam: Present: soft. Absent: tenderness Extremities exam: Present: normal inspection Neurological exam: Present: alert Skin exam: Present: warm, dry, intact, normal color. Absent: rash Course Vital Signs 09/27/19 09/27/19 09/27/19 02:32 05:45 05:51 Temperature 97.6 F 98.1 F Pulse Rate 95 90 93 Respiratory 18 17 18 Rate Blood Pressure 148/83 116/73 O2 Sat by Pulse 99 97 97 Oximetry Disposition Clinical Impression: Angioedema Disposition: HOME SELF-CARE Condition: Good Instructions (If sedation given, give patient instructions): Angioedema (ED) Prescriptions: predniSONE 60 mg PO DAILY #30 tab Is patient prescribed a controlled substance at d/c from ED?: No Referrals: Baldomero Truong MD [Primary Care Provider] - 1-2 days
[2019-09-27] MEDS ORDERED: EPINEPHrine 1 MG/ML 1 ML AMP SQ STA (05:37)
[2019-09-27 05:52] VITALS: TEMP 98.1
[2019-09-27 06:16] VITALS: BP 120/76; PULSE 97; RESP 17
== END 2019-09-27 06:16 | disposition home or self-care (01) ==
LOC: EC 02:29
DX: T78.3XXA Angioneurotic edema, initial encounter (principal); Z79.3 Long term (current) use of hormonal contraceptives; Z88.0 Allergy status to penicillin; Z88.2 Allergy status to sulfonamides
CPT/HCPCS: 99284; 96374; 96375 ×2; 96372; J0171; J1200; J2930

== ENCOUNTER → 2020-05-13 | Outpatient (CLI) | payer BC ==
[2020-05-13 11:32] LABS: Basophils % (A) 1 %; Eosinophils # (A) 0.1 k/uL (0-0.7); Eosinophils % (A) 2 %; HGB 16.3 gm/dL (11.4-16.0); Lymphocytes # (A) 1.2 k/uL (1.0-4.8); Lymphocytes % (A) 24 %; MCH 31.4 pg (25.0-35.0); MCHC 33.9 g/dL (31.0-37.0); MCV 92.8 fL (80.0-100.0); Mean Platelet Volume 7.1; Monocytes # (A) 0.4 k/uL (0-1.0); Monocytes % (A) 7 %; Neutrophils # (A) 3.3 k/uL (1.3-7.7); Neutrophils % (A) 65 %; Platelet Count 261 k/uL (150-450); RBC 5.17 m/uL (3.80-5.40); RDW 13.4 % (11.5-15.5); WBC 5.2 k/uL (3.8-10.6)
[2020-05-13 15:53] LABS: African American GFR (CKD) 128.5 (60.0-200.0); Albumin 4.6 g/dL (3.80-4.90); Anion Gap 9.1 mmol/L (4.00-12.00); BUN/Creat Ratio 23.33 Ratio (12.00-20.00); Calcium 9.4 mg/dL (8.7-10.3); Carbon Dioxide 21.9 mmol/L (21.6-31.8); Chol/HDL Ratio 3.37; Globulin 2.3 g/dL (1.6-3.3); LDL Cholesterol,Calculated 79.8 mg/dL (0.0-131.0); Non-African American GFR(CKD) 110.9 (60.0-200.0); Potassium 4.4 mmol/L (3.5-5.5); Total Bilirubin 0.5 mg/dL (0.2-1.2); Total Protein 6.9 g/dL (6.2-8.2); VLDL Calculation 29.2 mg/dL (5.00-40.00)
[2020-05-13 18:02] LABS: Hemoglobin A1C 5.3 % (4.0-6.0)
== END ==
LOC: LABWHC1 10:42
PROVIDERS: ATTEND Family Medicine
DX: Z00.00 Encounter for general adult medical examination without abnormal findings (principal)
CPT/HCPCS: 36415; 80053; 80061; 83036; 84443; 85025

== ENCOUNTER → 2022-05-12 | Outpatient (CLI) | payer BC ==
--- NOTE | 2022-05-12 11:47 | US ---
EXAMINATION TYPE: US pelvic complete DATE OF EXAM: 05/12/2022 COMPARISON: NONE CLINICAL HISTORY: N39.9 ABN UTERINE AND VAGINAL BLEEDING. Spontaneous spotting TECHNIQUE: . Transabdominal sonographic images of the pelvis were acquired. Transvaginal sonographi c images were medically necessary to better assess the following anatomy: Date of LMP: EXAM MEASUREMENTS: Uterus: 8.9 x 4.5 x 5.3 cm Endometrial Stripe: 0.7 cm Right Ovary: 2.6 x 1.2 x 2.2 cm Left Ovary: 2.0 x 1.7 x 2.7 cm 1. Uterus: Anteverted Round heterogenous area noted in anterior uterus roro. approx. 2.1 x 1.7 x 1 .5cm 2. Endometrium: wnl 3. Right Ovary: wnl 4. Left Ovary: follicles noted largest roro. 1.4 x 1.0 x 1.3 cm 5. Bilateral Adnexa: wnl 6. Posterior cul-de-sac: trace free fluid seen IMPRESSION: 1. There is a 2.1 cm rounded mass in the uterus most likely related to a fibroid.
== END | disposition home or self-care (01) ==
LOC: RADUSWWP 10:38
PROVIDERS: ATTEND Family Medicine
DX: N93.9 Abnormal uterine and vaginal bleeding, unspecified (principal); N85.8 Other specified noninflammatory disorders of uterus
CPT/HCPCS: 76856

== ENCOUNTER → 2022-06-09 | Outpatient (CLI) | payer BC ==
[2022-06-09 14:13] LABS: Basophils # (A) 0.04 X 10*3/uL (0.00-0.10); Basophils % (A) 0.8 %; Eosinophils # (A) 0.07 X 10*3/uL (0.04-0.35); Eosinophils % (A) 1.4 %; HCT 47.9 % (37.2-46.3); HGB 15.7 g/dL (12.0-15.0); Immature Grans, Automated 0.4 %; Lymphocytes # (A) 1.44 X 10*3/uL (0.90-5.00); Lymphocytes % (A) 28.1 %; MCH 30.2 pg (27.0-32.0); MCHC 32.8 g/dL (32.0-37.0); MCV 92.1 fL (80.0-97.0); Mean Platelet Volume 9.8 fL (9.5-12.2); Monocytes # (A) 0.44 X 10*3/uL (0.20-1.00); Monocytes % (A) 8.6 %; NRBC Per 100 WBC 0 /100 WBCS (0.0-0.0); Neutrophils # (A) 3.11 X 10*3/uL (1.80-7.70); Neutrophils % (A) 60.7 %; Platelet Count 270 X 10*3/uL (140-440); RDW 12.9 % (11.5-14.5); WBC 5.12 X 10*3/uL (4.50-10.00)
[2022-06-09 14:45] LABS: ALT 10 U/L (8-44); AST 11 U/L (13-35); African American GFR (CKD) 126.7 (60.0-200.0); Albumin 4.7 g/dL (3.8-4.9); Albumin/Globulin Ratio 1.96 (1.60-3.17); Alkaline Phosphatase 33 U/L (41-126); BUN/Creat Ratio 23.17 Ratio (12.00-20.00); Blood Urea Nitrogen 13.9 mg/dL (9.0-27.0); Calcium 9.4 mg/dL (8.7-10.3); Carbon Dioxide 20.7 mmol/L (20.0-27.5); Chloride 104 mmol/L (96-109); Chol/HDL Ratio 4.92 Ratio; Globulin 2.4 g/dL (1.6-3.3); Glucose 92 mg/dL (70-110); LDL Cholesterol,Calculated 113.8 mg/dL (0.0-131.0); Non-African American GFR(CKD) 109.3 (60.0-200.0); Potassium 4.4 mmol/L (3.5-5.5); Sodium 138 mmol/L (135-145); Total Protein 7.1 g/dL (6.2-8.2)
== END | disposition home or self-care (01) ==
LOC: LABWHC1 08:46
PROVIDERS: ATTEND Family Medicine
DX: Z00.00 Encounter for general adult medical examination without abnormal findings (principal)
CPT/HCPCS: 36415; 80053; 80061; 84443; 85025

== ENCOUNTER → 2022-06-18 | Outpatient (CLI) | payer BC ==
--- NOTE | 2022-06-21 18:13 | MM ---
Reason for Exam: Screening (asymptomatic). Last mammogram was performed 10 year(s) and 0 month(s) ago. Patient History: Menarche at age 14. First Full-Term at age 29. Patient has history of breast feeding. Currently using Hormonal Contraceptives, beginning at age 20 for 16 years. Risk Values: Dimple 5 year model risk: 0.9%. NCI Lifetime model risk: 10.5%. Prior Study Comparison: No prior studies available for comparison. Tissue Density: The breast tissue is heterogeneously dense. This may lower the sensitivity of mammography. Findings: Analyzed By CAD. Areas of asymmetric density in the right breast laterally and inferiorly suspected global asymmetry left upper quadrant. Further evaluation recommended as there are no priors available for comparison purposes. Overall Assessment: Incomplete: need additional imaging evaluation, BI-RAD 0 Management: Special View Mammogram of both breasts. 1. Additional views right breast including spot repeat CC, spot 3-D model, and 3-D ML views. 2. Additional views left breast include spot 3-D CC, spot 3-D MLO, and 3-D ML views. 3. Targeted ultrasound of either breast if any persisting abnormality. [facility] will attempt to contact patient to return for supplemental views and ultrasound if indicated. Electronically signed and approved by: Karlos Watson M.D. Radiologist
== END | disposition home or self-care (01) ==
LOC: RADMAMWWP 15:38
PROVIDERS: ATTEND Family Medicine
DX: Z12.31 Encounter for screening mammogram for malignant neoplasm of breast (principal)
CPT/HCPCS: 77063; 77067

== ENCOUNTER → 2022-06-23 | Outpatient (CLI) | payer BC ==
--- NOTE | 2022-06-23 13:11 | MM ---
Reason for Exam: Additional evaluation requested from abnormal screening. Last screening mammogram was performed less than 1 month ago. Patient History: Menarche at age 14. First Full-Term at age 29. Patient has history of breast feeding. Currently using Hormonal Contraceptives, beginning at age 20 for 16 years. Risk Values: Dimple 5 year model risk: 0.9%. NCI Lifetime model risk: 10.5%. Prior Study Comparison: 06/16/2012 Left Diagnostic Mammogram, [facility]. 06/18/2022 Bilateral MG 3D screening mammo w/cad, [facility]. Tissue Density: The breast tissue is heterogeneously dense. This may lower the sensitivity of mammography. Findings: Analyzed By CAD. Under compression of the focal asymmetries appear to disperse. Suspicious underlying spiculated or lobular mass is not identified.. Overall Assessment: Probably benign, BI-RAD 3 Management: Diagnostic Mammogram of both breasts in 6 months. A clinical breast exam by your physician is recommended on an annual basis and results should be correlated with mammographic findings. This exam should not preclude additional follow-up of suspicious palpable abnormalities. Results were given to the patient verbally at the time of exam. Electronically signed and approved by: Brant Gomez D.O. Radiologis
== END | disposition home or self-care (01) ==
LOC: RADMAMWWP 12:42
PROVIDERS: ATTEND Family Medicine
DX: R92.8 Other abnormal and inconclusive findings on diagnostic imaging of breast (principal)
CPT/HCPCS: 77062; 77066

== ENCOUNTER 2023-02-16 21:33 | Emergency (ER) | payer BC ==
[2023-02-16 21:37] VITALS: TEMP 97.5
[2023-02-16] MEDS ORDERED: KETOROLAC 15 MG/ML 1 ML VIAL IVP STA (22:36)
[2023-02-16] MEDS ORDERED: ONDANSETRON 4 MG/2 ML VIAL IVP STA (22:36)
[2023-02-16] MEDS ORDERED: HYDROmorphone 0.5 MG/0.5 ML SYRINGE IVP STA (22:36)
[2023-02-16 22:37] LABS: Basophils % (A) 0 %; Eosinophils # (A) 0.2 k/uL (0-0.7); Eosinophils % (A) 2 %; HCT 44.4 % (34.0-46.0); HGB 15.3 gm/dL (11.4-16.0); Lymphocytes # (A) 1.1 k/uL (1.0-4.8); Lymphocytes % (A) 13 %; MCH 30.6 pg (25.0-35.0); MCHC 34.4 g/dL (31.0-37.0); MCV 88.9 fL (80.0-100.0); Mean Platelet Volume 7.7; Monocytes # (A) 0.4 k/uL (0-1.0); Monocytes % (A) 5 %; Neutrophils # (A) 6.7 k/uL (1.3-7.7); Neutrophils % (A) 78 %; Platelet Count 263 k/uL (150-450); WBC 8.6 k/uL (3.8-10.6)
--- NOTE | 2023-02-16 22:41 | ED ---
Abdominal Pain HPI - General Chief Complaint: Abdominal Pain Stated Complaint: ABD Pain Time Seen by Provider: 02/16/23 22:12 Source: patient, RN notes reviewed Mode of arrival: ambulatory Limitations: no limitations - History of Present Illness Initial Comments: This is a 47-year-old female who presents to the emergency department for abdominal pain. States that 3-4 hours ago, she developed severe pain in the right upper quadrant with radiation to the right shoulder. Denies any chest pain or shortness of breath. She has a history of pancreatitis, but states that she usually gets epigastric pain with this. She has associated nausea and vomiting. Denies any constipation or diarrhea. Unsure if she has ever had problems with the gallbladder. Denies any fevers, chills, sore throat, cough, dyspnea, chest pain, palpitations, diarrhea, back pain, or headaches. MD Complaint: abdominal pain Location: RUQ Radiation: other (Right shoulder) Associated Symptoms: nausea, vomiting - Related Data Home Medications Medication Instructions Recorded Confirmed norethindrone-e.estradioL-iron 1 tab PO DAILY 08/11/17 08/11/17 [Junel Fe 1 mg-20 Mcg Tablet] Previous Rx's Medication Instructions Recorded predniSONE 60 mg PO DAILY #30 tab 09/27/19 HYDROcodone/APAP 5-325MG [[place] 1 tab PO Q6HR PRN 3 Days #12 tab 02/17/23 5-325] Ketorolac [Toradol] 10 mg PO Q6HR PRN #12 tab 02/17/23 Ondansetron Odt [Zofran Odt] 4 mg PO Q8HR PRN #15 tab 02/17/23 Allergies Allergy/AdvReac Type Severity Reaction Status Date / Time Penicillins Allergy Anaphylaxis Verified 02/16/23 21:37 Sulfa (Sulfonamide Allergy Rash/Hives Verified 02/16/23 21:37 Antibiotics) Review of Systems ROS Statement: Those systems with pertinent positive or pertinent negative responses have been documented in the HPI. ROS Other: All systems not noted in ROS Statement are negative. Past Medical History Past Medical History: Asthma, Diabetes Mellitus, Hypertension History of Any Multi-Drug Resistant Organisms: None Reported Past Surgical History: Orthopedic Surgery Additional Past Surgical History / Comment(s): left wrist, Past Psychological History: No Psychological Hx Reported Smoking Status: Never smoker Past Alcohol Use History: None Reported Past Drug Use History: None Reported General Exam Limitations: no limitations General appearance: alert, in distress Head exam: Present: atraumatic, normocephalic, normal inspection Respiratory exam: Present: normal lung sounds bilaterally. Absent: respiratory distress, wheezes, rales, rhonchi, stridor Cardiovascular Exam: Present: regular rate, normal rhythm, normal heart sounds. Absent: systolic murmur, diastolic murmur, rubs, gallop, clicks GI/Abdominal exam: Present: soft, tenderness (RUQ), guarding, normal bowel sounds. Absent: distended Expanded GI/Abdominal exam: Present: Conrad's sign Neurological exam: Present: alert, oriented X3, CN II-XII intact Psychiatric exam: Present: normal affect, normal mood Skin exam: Present: warm, dry, intact, normal color. Absent: rash Course Vital Signs 02/16/23 02/17/23 21:34 00:42 Temperature 97.5 F L Pulse Rate 94 78 Respiratory 22 18 Rate Blood Pressure 162/82 122/82 O2 Sat by Pulse 99 98 Oximetry Medical Decision Making - Medical Decision Making This is a 47-year-old female who presents to the emergency department for right upper quadrant pain. Was pt. sent in by a medical professional or institution? @ -No Did you speak to anyone other than the patient for history? @ -No Did you review nursing and triage notes? @ -Yes, and I agree, it is accurate with regards to the patient's symptoms. Were old charts reviewed? @ -No Differential Diagnosis? @ -Differential Abdominal Pain Women: Appendicitis, Cholecystitis, diverticulosis, ischemic bowel, pancreatitis, hepatitis, UTI, gastroenteritis, AAA, incarcerated hernia, bowel obstruction, constipation, inflammatory bowel, hepatitis, peptic ulcer disease, splenic infarction, perforated viscus, vulvitis, ovarian torsion, PID, kidney stone, placenta abruption, this is not meant to be an all-inclusive list EKG interpreted by me (3pts min.)? @ -Sinus rhythm. Ventricular rate 72 bpm, NM interval 164 ms, QRS duration 81 ms, QTC 410 ms. U/S interpreted by me (1pt. min.)? @ -Gallbladder ultrasound obtained. My interpretation identifies cholelithiasis. What testing was considered but not performed? (CT, X-rays, U/S, labs)? Why? @ -None What meds were considered but not given? Why? @ -None Did you discuss the management of the patient with other professionals? @ -Yes, Dr. Mccabe, who advised that the patient can remain in the hospital or follow-up on an outpatient basis depending on her preferences and how she is feeling. Did you reconcile home meds? @ -No Was smoking cessation discussed for >3mins.? @ -No Was critical care preformed (if so, how long)? @ -No Were there social determinants of health that impacted care today? How? (Homelessness, low income, unemployed, alcoholism, drug addiction, transportation, low edu. Level, literacy, decrease access to med. care, care home, rehab)? @ -No Was there de-escalation of care discussed even if they declined? (Discuss DNR or withdrawal of care, Hospice)? @ -No What co-morbidities impacted this encounter? (DM, HTN, Smoking, COPD, CAD, Cancer, CVA, Hep., AIDS, mental health diagnosis, sleep apnea, morbid obesity)? @ -Morbid obesity Was patient admitted / discharged? @ -Discharged. Lab work obtained and found to be nonactionable. Gallbladder ultrasound obtained revealing cholelithiasis with a gallstone lodged in the gallbladder neck and gallbladder distention. Patient given IV fluids, Toradol, Zofran, and Dilaudid, which resolved her symptoms. Case discussed with Dr. Mccabe, general surgery. He advised that she can be admitted and have surgery evaluate her in the morning, or be discharged home with follow-up on an outpatient basis. It essentially up to the patient and how she feels. This was discussed with the patient, and she requests to follow-up on an outpatient basis. Prescriptions for Toradol, [place], and Zofran provided with dosing instructions reviewed. Advised to take the [place] very sparingly when her pain is the most severe and she was made aware that it may be sedating and she should avoid driving or operating machinery when taking this. She is also instructed to avoid any anti-inflammatories with the Toradol. Additionally, she is instructed to follow a low-fat and bland diet to reduce the risk of additional episodes of biliary colic. Information for general surgery follow-up provided, she is instructed to contact them first thing this morning. Undiagnosed new problem with uncertain prognosis? @ -None Drug Therapy requiring intensive monitoring for toxicity (Heparin, Nitro, Insulin, Cardizem)? @ -None Were any procedures done? @ -None Diagnosis/symptom? @ -Cholelithiasis, biliary colic Acute, or Chronic, or Acute on Chronic? @ -Acute Uncomplicated (without systemic symptoms) or Complicated (systemic symptoms)? @ -Uncomplicated Side effects of treatment? @ -None Exacerbation, Progression, or Severe Exacerbation] @ -Not applicable Poses a threat to life or bodily function? @ -No Return precautions reviewed in depth, the patient is instructed to return to the emergency department with any new, worsening, or concerning symptoms. Patient verbalized understanding. This case was discussed in detail with the attending ED physician, Dr. Duarte. Presentation, findings, and treatment plan discussed in detail as well. - Lab Data Result diagrams: 02/16/23 22:26 02/16/23 22:26 Lab Results 02/16/23 02/16/23 02/16/23 Range/Units 22:26 22:26 22:27 WBC 8.6 (3.8-10.6) k/uL RBC 5.00 (3.80-5.40) m/uL Hgb 15.3 (11.4-16.0) gm/dL Hct 44.4 (34.0-46.0) % MCV 88.9 (80.0-100.0) fL MCH 30.6 (25.0-35.0) pg MCHC 34.4 (31.0-37.0) g/dL RDW 14.0 (11.5-15.5) % Plt Count 263 (150-450) k/uL MPV 7.7 Neutrophils % 78 % Lymphocytes % 13 % Monocytes % 5 % Eosinophils % 2 % Basophils % 0 % Neutrophils # 6.7 (1.3-7.7) k/uL Lymphocytes # 1.1 (1.0-4.8) k/uL Monocytes # 0.4 (0-1.0) k/uL Eosinophils # 0.2 (0-0.7) k/uL Basophils # 0.0 (0-0.2) k/uL Sodium 140 (137-145) mmol/L Potassium 4.5 (3.5-5.1) mmol/L Chloride 108 H (98-107) mmol/L Carbon Dioxide 21 L (22-30) mmol/L Anion Gap 11 mmol/L BUN 14 (7-17) mg/dL Creatinine 0.59 (0.52-1.04) mg/dL Est GFR (CKD-EPI)AfAm >90 (>60 ml/min/1.73 sqM) Est GFR (CKD-EPI)NonAf >90 (>60 ml/min/1.73 sqM) Glucose 133 H (74-99) mg/dL Calcium 9.7 (8.4-10.2) mg/dL Total Bilirubin 0.4 (0.2-1.3) mg/dL AST 19 (14-36) U/L ALT 22 (4-34) U/L Alkaline Phosphatase 44 (38-126) U/L Total Protein 7.4 (6.3-8.2) g/dL Albumin 4.4 (3.5-5.0) g/dL Amylase 84 (30-110) U/L Lipase 268 (23-300) U/L Urine Color Light Yellow Urine Appearance Clear (Clear) Urine pH 6.0 (5.0-8.0) Ur Specific [place] 1.032 (1.001-1.035) Urine Protein Trace H (Negative) Urine Glucose (UA) 4+ H (Negative) Urine Ketones 1+ H (Negative) Urine Blood Negative (Negative) Urine Nitrite Negative (Negative) Urine Bilirubin Negative (Negative) Urine Urobilinogen <2.0 (<2.0) mg/dL Ur Leukocyte Esterase Negative (Negative) - Radiology Data Radiology results: report reviewed, image reviewed Disposition Clinical Impression: Cholelithiasis, Biliary colic Disposition: HOME SELF-CARE Instructions (If sedation given, give patient instructions): Biliary Colic (ED), Gallstones (ED), Low Fat Diet (ED) Additional Instructions: Return to the emergency department with any new, worsening, or concerning symptoms. Take the Toradol with Tylenol as needed for pain relief. Do not take any other mwsm-gir-cmuuzjg anti-inflammatories with the Toradol. Take the [place] sparingly when your pain is the most severe and be aware that it may be sedating. You can take the Zofran up to every 8 hours as needed for nausea and vomiting. You will need to follow a low-fat and bland diet until the gallbladder is removed. Contact general surgery as listed below first thing tomorrow morning for a follow-up appointment. Prescriptions: HYDROcodone/APAP 5-325MG [[place] 5-325] 1 tab PO Q6HR PRN 3 Days #12 tab PRN Reason: Pain Ketorolac [Toradol] 10 mg PO Q6HR PRN #12 tab PRN Reason: Pain Ondansetron Odt [Zofran Odt] 4 mg PO Q8HR PRN #15 tab PRN Reason: Nausea And Vomiting Is patient prescribed a controlled substance at d/c from ED?: Yes When asked, does pt state using other controlled substances?: No If prescribed controlled substance>3 days was MAPS reviewed?: Prescribed <3 Days Referrals: Baldomero Truong MD [Primary Care Provider] - 1-2 days Wilber Mccabe MD [Medical Doctor] - 1-2 days
[2023-02-16 22:45] LABS: ALT 22 U/L (4-34); AST 19 U/L (14-36); African American GFR (CKD) >90 (>60 ml/min/1.73 sqM); Albumin 4.4 g/dL (3.5-5.0); Alkaline Phosphatase 44 U/L (38-126); Amylase 84 U/L (30-110); Anion Gap 11 mmol/L; Blood Urea Nitrogen 14 mg/dL (7-17); Calcium 9.7 mg/dL (8.4-10.2); Carbon Dioxide 21 mmol/L (22-30); Chloride 108 mmol/L (98-107); Glucose 133 mg/dL (74-99); Lipase 268 U/L (23-300); Non-African American GFR(CKD) >90 (>60 ml/min/1.73 sqM); Potassium 4.5 mmol/L (3.5-5.1); Sodium 140 mmol/L (137-145); Total Bilirubin 0.4 mg/dL (0.2-1.3); Total Protein 7.4 g/dL (6.3-8.2)
[2023-02-16 22:59] LABS: Appearance,Urine Clear (Clear); Bilirubin,Urine Negative (Negative); Blood,Urine Negative (Negative); Color,Urine Light Yellow; Glucose,Urine (UA) 4+ (Negative); Ketones,Urine 1+ (Negative); Leukocyte Esterase,Urine Negative (Negative); Nitrite,Urine Negative (Negative); Protein,Urine Trace (Negative); Specific Gravity,Urine 1.032 (1.001-1.035); Urobilinogen,Urine <2.0 mg/dL (<2.0)
--- NOTE | 2023-02-16 23:13 | US ---
EXAMINATION TYPE: US gallbladder DATE OF EXAM: 02/16/2023 COMPARISON: NONE CLINICAL HISTORY: RUQ pain. RUQ pain x 4 hours TECHNIQUE: Multiple sonographic images of the right upper quadrant are obtained. FINDINGS: EXAM MEASUREMENTS: Liver Length: 20.7 cm Gallbladder Wall: 0.25 cm CBD: 0.36 cm Right Kidney: 12.9 x 5.8 x 4.7 cm COVER CREASER NOTES: Pancreas: Appears wnl Liver: wnl Gallbladder: Multiple gallstones visualized, one lodged in neck. GB appears hydropic Evidence for sonographic Conrad's sign: No (but pt was just given pain meds) CBD: wnl Right Kidney: wnl IMPRESSION: There are numerous gallstones with gallstone impacted in the gallbladder neck. No significant gallbla dder wall thickening. No dilated ducts. Distended gallbladder. Cholecystitis is possible.
[2023-02-17] MEDS ORDERED: ACET/COD 300 MG/30 MG STARTER PACK 6 TAB BTL PO STA (00:09)
[2023-02-17] MEDS ORDERED: ONDANSETRON 4 MG ODT STARTER PACK 2 TAB BTL PO STA (00:10)
[2023-02-17 00:43] VITALS: BP 122/82; PULSE 78; RESP 18
== END 2023-02-17 00:43 | disposition home or self-care (01) ==
LOC: EC 21:33
DX: K80.20 Calculus of gallbladder without cholecystitis without obstruction (principal); I10 Essential (primary) hypertension; E11.9 Type 2 diabetes mellitus without complications; J45.909 Unspecified asthma, uncomplicated; Z79.899 Other long term (current) drug therapy; Z88.0 Allergy status to penicillin; Z88.2 Allergy status to sulfonamides
CPT/HCPCS: 36415; 93005; 80053; 82150; 83690; 85025; 81003; 76705; 99284; 96374; 96375 ×2; J2405; J1885; S0119; J1170

== ENCOUNTER 2023-06-03 08:45 | Day surgery (SDC) | payer BC ==
[2023-05-28 12:18] VITALS: BMI 33.3
--- NOTE | 2023-06-03 07:47 | P.GSHP ---
History of Present Illness H&P Date: 06/03/23 CHIEF COMPLAINT: Cholecystitis HISTORY OF PRESENT ILLNESS: The patient is a 48-year-old female who presents with history of epigastric including right upper quadrant abdominal pain. She underwent diagnostic studies for her gallbladder. Separately her clinical picture was consistent with cholecystitis. Now she presents for surgical intervention. PAST MEDICAL HISTORY: Please see list PAST SURGICAL HISTORY: Please see list MEDICATIONS: Please see list ALLERGIES: Please see list SOCIAL HISTORY: Please see list FAMILY HISTORY: Please see list REVIEW OF ORGAN SYSTEMS: CONSTITUTIONAL: No reports of fevers or chills. HEENT: Denies any troubles with the vision or hearing. ENDOCRINE: No reports of hypothyroidism. No diabetes. RESPIRATORY: No recent pneumonias. CARDIOVASCULAR: Denies chest pain or palpitations GI: No blood in stools or constipation. MUSCULOSKELETAL: Has occasional joint pain including back pain. NEURO: No seizure disorders or headaches. No recent stroke. PSYCH: No depression or suicidal ideation. GENITOURINARY: No active blood in urine. No urinary hesitancy. HEMATOLOGIC: No personal or family history of DVTs or pulmonary emboli. SKIN: No skin cancer. PHYSICAL EXAM: VITAL SIGNS: Afebrile vital signs stable GENERAL: Well-developed pleasant in no acute distress. HEENT: No scleral icterus. Extraocular movements grossly intact. Moist buccal mucosa. NECK: Supple without lymphadenopathy. CHEST: Unlabored respirations. Equal bilateral excursions. CARDIOVASCULAR: Regular rate regular rhythm rhythm. Distal 2+ pulses. ABDOMEN: Soft, nondistended. Tender along the epigastrium and right upper quadrant. MUSCULOSKELETAL: No clubbing, cyanosis, or edema. NEURO: Cranial nerves II to XII within normal limits. No focal or lateralizing signs. PSYCH: Alert and oriented to person, place and time. SKIN: Well-perfused good skin turgor. ASSESSMENT: 1. Epigastric and right upper quadrant abdominal pain 2. Chronic cholecystitis 3. Symptomatic gallstones. PLAN: 1. Will need a robotic cholecystectomy possible open. Benefits and risks were described. 2. Heparin for DVT prophylaxis 5000 units. 3. Antibiotic prophylaxis. 4. CBC and CMP on day of procedure 5. Non-narcotic pre and post op pain management reviewed. 6. Indocyanine green for biliary imaging. Past Medical History Past Medical History: Asthma, Diabetes Mellitus History of Any Multi-Drug Resistant Organisms: None Reported Past Surgical History: Orthopedic Surgery Additional Past Surgical History / Comment(s): left wrist surg. Past Anesthesia/Blood Transfusion Reactions: No Reported Reaction Past Psychological History: Anxiety, Depression Smoking Status: Former smoker Past Alcohol Use History: None Reported Past Drug Use History: None Reported - Past Family History Mother Family Medical History: No Reported History Medications and Allergies Home Medications Medication Instructions Recorded Confirmed Type Citalopram Hydrobromide [CeleXA] 20 mg PO DAILY 05/28/23 05/28/23 History Diphenox-Atrop 2.5-0.025 mg 1 tab PO QID PRN 05/28/23 05/28/23 History [Lomotil] Empagliflozin [Jardiance] 25 mg PO DAILY 05/28/23 05/28/23 History Nf-Ashlyna Control 1 dose PO DIRECTED 05/28/23 05/28/23 History Spironolactone [Aldactone] 25 mg PO DAILY 05/28/23 05/28/23 History Allergies Allergy/AdvReac Type Severity Reaction Status Date / Time Penicillins Allergy Anaphylaxis Verified 05/28/23 11:52 Sulfa (Sulfonamide Allergy Anaphylaxis Verified 05/28/23 11:52 Antibiotics)
[~2023-06-03 08:45] MED LIST: ACETAMINOPHEN TAB 500 MG TAB PO PRN; DEXAMETHASONE SOD PHOSPHATE 4 MG/ML 1 ML VIAL IV ONE; HEPARIN SODIUM,PORCINE/PF 5,000 UNIT/0.5 ML SYRINGE SQ PRN; HYDROmorphone 0.5 MG/0.5 ML SYRINGE IVP PRN; INDOCYANINE GREEN 25 MG VIAL IV STA; LACTATED RINGERS 1,000 ML IV SCH; ONDANSETRON 4 MG/2 ML VIAL IVP ONE; SCOPOLAMINE 1 MG/72 HR PATCH TRANSDERM STA
[2023-06-03 10:04] LABS: Basophils % (A) 0 %; Eosinophils # (A) 0.1 k/uL (0-0.7); Eosinophils % (A) 2 %; HCT 45.1 % (34.0-46.0); Lymphocytes # (A) 1.3 k/uL (1.0-4.8); Lymphocytes % (A) 20 %; MCH 30.5 pg (25.0-35.0); MCHC 33.3 g/dL (31.0-37.0); MCV 91.6 fL (80.0-100.0); Mean Platelet Volume 7.3; Monocytes # (A) 0.4 k/uL (0-1.0); Monocytes % (A) 6 %; Neutrophils # (A) 4.6 k/uL (1.3-7.7); Neutrophils % (A) 71 %; Platelet Count 245 k/uL (150-450); RBC 4.92 m/uL (3.80-5.40); RDW 13.2 % (11.5-15.5); WBC 6.6 k/uL (3.8-10.6)
[2023-06-03 10:09] LABS: Glucose,Whole Blood 116 mg/dL (70-110)
[2023-06-03 10:15] LABS: ALT 16 U/L (4-34); AST 20 U/L (14-36); African American GFR (CKD) >90 (>60 ml/min/1.73 sqM); Albumin 4.2 g/dL (3.5-5.0); Alkaline Phosphatase 41 U/L (38-126); Anion Gap 9 mmol/L; Blood Urea Nitrogen 16 mg/dL (7-17); Calcium 9.2 mg/dL (8.4-10.2); Carbon Dioxide 19 mmol/L (22-30); Chloride 108 mmol/L (98-107); Glucose 111 mg/dL (74-99); Non-African American GFR(CKD) >90 (>60 ml/min/1.73 sqM); Potassium 4.5 mmol/L (3.5-5.1); Sodium 136 mmol/L (137-145); Total Bilirubin 0.4 mg/dL (0.2-1.3); Total Protein 7.4 g/dL (6.3-8.2)
[2023-06-03] MEDS ORDERED: ROCURONIUM 10 MG/ML (5 ML VIAL) IV ONE (10:54)
[2023-06-03] MEDS ORDERED: MIDAZOLAM 2 MG/2 ML VIAL ONE (10:54)
[2023-06-03] MEDS ORDERED: LIDOCAINE 2% INJ 20 MG/ML (2 ML VIAL) ONE (10:54)
[2023-06-03] MEDS ORDERED: fentaNYL (PF) 50 MCG/ML 2 ML AMP ONE (10:54)
[2023-06-03] MEDS ORDERED: SUCCINYLCHOLINE CHLORIDE 200 MG/10 ML VIAL IV ONE (10:54)
[2023-06-03] MEDS ORDERED: PROPOFOL 10 MG/ML 20 ML VIAL IV ONE (10:54)
[2023-06-03] MEDS ORDERED: GLYCOPYRROLATE 0.2 MG/ML 2 ML VIAL ONE (10:54)
[2023-06-03] MEDS ORDERED: NEOSTIGMINE 1 MG/ML 10 ML VIAL ONE (10:54)
[2023-06-03] MEDS ORDERED: LIDOCAINE 2%-EPI 1:100,000 20 ML VIAL SQ ONE (11:36)
[2023-06-03 12:42] VITALS: TEMP 98.6
[2023-06-03 12:55] VITALS: RESP 16
[2023-06-03] MEDS ORDERED: LACTATED RINGERS 1,000 ML IV ONE (13:19)
--- NOTE | 2023-06-03 13:20 | P.OP ---
Date of Procedure: 06/03/23 Description of Procedure: SURGEON: AMIRA BEDOYA MD PREOPERATIVE DIAGNOSES: 1. Symptomatic gallstones 2. Right upper quadrant abdominal pain 3. Hypertensive heart disease 4. Obesity due to excess calories, 33.7 5. Diabetes type 2, [id number] 6. Depressive disorder 7. Asthma POSTOPERATIVE DIAGNOSES: 1. Symptomatic gallstone 2. Right upper quadrant abdominal pain 3. Chronic cholecystitis 4. Peritoneal adhesions, right upper quadrant 5. Diabetes type 2, [id number] 6. Depressive disorder 7. Asthma 8. Hypertensive heart disease 9. Obesity due to excess calories, 33.7 10. Fatty liver disease OPERATION: 1. Robotic-assisted da Cortney Xi laparoscopic lysis of adhesions over 60% of the case 2. Robotic-assisted da Cortney Xi laparoscopic cholecystectomy, multiport with FIREFLY ESTIMATED BLOOD LOSS: 10 mL. SPECIMENS REMOVED: Gallbladder. COMPLICATIONS: None. OPERATIVE FINDINGS: 1. Moderate scarring over entire gallbladder with peritoneal adhesions, pericholecystic with features of chronic cholecystitis 2. Severe hepatomegaly due to fatty liver disease and complexity to the case, intrahepatic gallbladder 3. Dome down technique performed from gallbladder fundus to infundibulum INDICATIONS: The patient is a 48-year-old female who presents with symptomatic gallstones. Robotic assisted laparoscopic approach was described. Benefits and risks of the procedure including but not limited to bleeding, infection, injury to the biliary tree was described. Informed consent was obtained. DESCRIPTION OF PROCEDURE: Patient was brought to the operating room, placed in supine position. After general induction, the abdomen had been prepped and draped in standard sterile fashion. The robotic da Cortney XI system was primed. After a timeout protocol was performed, the patient had been prepped and draped in standard sterile fashion. The patient was injected with indocyanine green. A 5 mm 0 degrees laparoscopic trocar entry was performed along the left upper quadrant. The abdomen insufflated to 15 mmHg pressure which was tolerated well. Diagnostic laparoscopy demonstrated no injury to bowel viscera or mesentery. The liver surface was unremarkable. Next, two 8 mm robotic ports were placed along the right upper abdomen. The camera 8-mm port was maintained along the epigastrium. Another 8 mm port was placed along the left upper abdominal wall after exchanging the 5 mm port. Please note that the ports were placed at least 10 to 15 cm away from the target anatomy of the gallbladder. The robot was docked along the left lateral abdomen. The patient was repositioned in reverse Trendelenburg position. Using a grasper for arm 3, a grasper for arm 4, including hook cautery for arm 1, the robotic system was docked and primed as described. Instruments were interchanged by the food and nutrition services assistant including hook cautery, Bovie cautery and clip appliers. I had sat at the console. The gallbladder was scarred with peritoneal adhesions. Lysis of adhesions was performed to free the gallbladder from the surrounding tissues. The gallbladder was dissected with a dome down technique. Next attention was brought to the infundibulum and cystic structures. The infundibulum and cystic duct were dissected free from surrounding tissues. The cystic duct was isolated. FIREFLY was used to identify the cystic artery and cystic structures. A critical view of safety was obtained. Large PLASTIC clips were used throughout the entire case. Using a clip sound engineering technician, 2 clips were placed at the junction of the infundibulum and cystic duct. The cystic duct was divided between clips. Next, the cystic artery was similarly clipped and cauterized. Electro-Bovie cautery was used to remove the gallbladder from the hepatic fossa. Hemostasis was checked and found to be adequate. The robot was undocked. I re-scrubbed into the case. Using a 10 mm Endo Catch bag via the left upper quadrant incision, the specimen was removed from the abdominal cavity. All pneumoperitoneum instruments were evacuated from the abdominal cavity. The incisions were reapproximated using 4-0 Monocryl in an interrupted subcuticular fashion. Fascial defects were less than 8 mm in size. Please note along the trocar sites, local anesthetic was placed as a field block prior to insertion of all instruments. Liquid glue was applied to the skin. At the end of the procedure needle, sponge, and instrument count had been verified correct by the copy technician. The patient was transferred to postanesthesia care unit in stable condition. Intraoperative films were shared with the patient's family. Plan - Discharge Summary Discharge Rx Participant: No New Discharge Prescriptions: New Simethicone [Gas-X] 125 mg PO AC-TID PRN #20 capsule PRN Reason: Pain Ibuprofen [Motrin] 600 mg PO Q8HR PRN #30 tab PRN Reason: Pain Acetaminophen Tab [Tylenol Tab] 1,000 mg PO Q6HR PRN #30 tablet PRN Reason: Pain Continue Spironolactone [Aldactone] 25 mg PO DAILY Diphenox-Atrop 2.5-0.025 mg [Lomotil] 1 tab PO QID PRN PRN Reason: Diarrhea Nf-Ashlyna Control 1 dose PO DIRECTED Citalopram Hydrobromide [CeleXA] 20 mg PO DAILY Empagliflozin [Jardiance] 25 mg PO DAILY Discharge Medication List Citalopram Hydrobromide [CeleXA] 20 mg PO DAILY 05/28/23 [History] Diphenox-Atrop 2.5-0.025 mg [Lomotil] 1 tab PO QID PRN 05/28/23 [History] Empagliflozin [Jardiance] 25 mg PO DAILY 05/28/23 [History] Nf-Ashlyna Control 1 dose PO DIRECTED 05/28/23 [History] Spironolactone [Aldactone] 25 mg PO DAILY 05/28/23 [History] Acetaminophen Tab [Tylenol Tab] 1,000 mg PO Q6HR PRN #30 tablet 06/03/23 [Rx] Ibuprofen [Motrin] 600 mg PO Q8HR PRN #30 tab 06/03/23 [Rx] Simethicone [Gas-X] 125 mg PO AC-TID PRN #20 capsule 06/03/23 [Rx] Follow up Appointment(s)/Referral(s): Amira Bedoya MD [STAFF PHYSICIAN] - 06/08/23 (TELEHEALTH - Dr calls you at home between 8am to 8 pm) Patient Instructions/Handouts: *[facility] - Managing Your Pain After Surgery Without Opioids, Low Fat Diet (DC), Laparoscopic Cholecystectomy (GEN) Activity/Diet/Wound Care/Special Instructions: TELEHEALTH - DR WILL CALL YOU BETWEEN 8 am to 8 pm Recommend low-fat diet for the next 2 days. No lifting over 10 pounds in 2 weeks until June 17. March shower. No bath tub soaks for two weeks until June 17. Diet as tolerated. Use Tylenol, simethicone and ibuprofen or Aleve scheduled for the next 24-48 hours for best pain relief. Use ice along incisions for today to prevent swelling. Discharge Disposition: HOME SELF-CARE
[2023-06-03 13:42] VITALS: BP 145/74; PULSE 87
== END 2023-06-03 14:00 | disposition home or self-care (01) ==
LOC: OR 08:45
PROVIDERS: ATTEND Surgery Plastic and Reconstructive Surgery
DX: K80.10 Calculus of gallbladder with chronic cholecystitis without obstruction (principal); K66.0 Peritoneal adhesions (postprocedural) (postinfection); I11.9 Hypertensive heart disease without heart failure; E66.9 Obesity, unspecified; Z68.33 Body mass index [BMI] 33.0-33.9, adult; E11.9 Type 2 diabetes mellitus without complications; F32.A Depression, unspecified; J45.909 Unspecified asthma, uncomplicated; K76.0 Fatty (change of) liver, not elsewhere classified; F41.9 Anxiety disorder, unspecified; J45.20 Mild intermittent asthma, uncomplicated; Z87.891 Personal history of nicotine dependence; Z79.84 Long term (current) use of oral hypoglycemic drugs; Z79.3 Long term (current) use of hormonal contraceptives; Z88.0 Allergy status to penicillin; Z88.2 Allergy status to sulfonamides
CPT/HCPCS: 47562; S2900; 80053; 81025; 85025; 88304; 93005

== ENCOUNTER → 2024-05-29 | Outpatient (CLI) | payer BC ==
[2024-05-29 08:57] LABS: Basophils % (A) 1 %; Eosinophils # (A) 0.1 k/uL (0-0.7); Eosinophils % (A) 1 %; HCT 46.2 % (34.0-46.0); HGB 14.9 gm/dL (11.4-16.0); Lymphocytes # (A) 1.7 k/uL (1.0-4.8); Lymphocytes % (A) 30 %; MCH 30.5 pg (25.0-35.0); MCHC 32.2 g/dL (31.0-37.0); MCV 94.9 fL (80.0-100.0); Mean Platelet Volume 7.5; Monocytes # (A) 0.4 k/uL (0-1.0); Monocytes % (A) 7 %; Neutrophils # (A) 3.4 k/uL (1.3-7.7); Neutrophils % (A) 59 %; Platelet Count 219 k/uL (150-450); RBC 4.87 m/uL (3.80-5.40); RDW 13.7 % (11.5-15.5); WBC 5.7 k/uL (3.8-10.6)
[2024-05-29 16:16] LABS: ALT 34 U/L (8-44); AST 26 U/L (13-35); Albumin 4.3 g/dL (3.8-4.9); Albumin/Globulin Ratio 1.87 Ratio (1.60-3.17); Alkaline Phosphatase 59 U/L (41-126); BUN/Creat Ratio 16.67 Ratio (12.00-20.00); Calcium 9.3 mg/dL (8.7-10.3); Carbon Dioxide 20.5 mmol/L (21.6-31.8); Chloride 104 mmol/L (96-109); Chol/HDL Ratio 4.49 Ratio; Globulin 2.3 g/dL (1.6-3.3); Glucose 129 mg/dL (70-110); Potassium 4.1 mmol/L (3.5-5.5); Sodium 138 mmol/L (135-145); T4, Free (Free Thyroxine) 1.15 ng/dL (0.80-1.80); Total Bilirubin 0.4 mg/dL (0.3-1.2); Total Protein 6.6 g/dL (6.2-8.2)
== END | disposition home or self-care (01) ==
LOC: LABWHC1 08:11
PROVIDERS: ATTEND Family Medicine
DX: Z00.00 Encounter for general adult medical examination without abnormal findings (principal); I10 Essential (primary) hypertension; E11.9 Type 2 diabetes mellitus without complications; Z79.899 Other long term (current) drug therapy
CPT/HCPCS: 36415; 80053; 80061; 83036; 83721; 84439; 84443; 85025

== ENCOUNTER → 2025-02-27 | Outpatient (CLI) | payer BC ==
[2025-02-27 16:15] VITALS: BP 150/77; PULSE 104; RESP 16; TEMP 98.4
--- NOTE | 2025-02-27 20:23 | P.SLEEP ---
History of Present Illness H&P Date: 02/27/25 49-year-old female patient, who has been diagnosed having obstructive sleep apnea through her primary care physician and the patient is coming into address adequacy of her treatment. This patient has extensive number of comorbidities. She has chronic fatigue and tiredness and sleepiness. She goes to bed at around 10 PM and wakes at 4 AM in the morning and she averages around 5 to 6 hours in bed. She reports snoring and apneas and she also states that she would wake up in the middle of the night gasping for air. Based on that, a sleep study was done through her primary care, probably a home sleep study approximately 3 years ago and the patient was given a diagnosis of sleep apnea. Due to some complex with the DME, the patient was unable to maintain her CPAP machine Bactrim. Recently, another sleep study was done and based on that, the patient was given an APAP machine which is currently set at a pressure of 5/15 cm of water. I do not have access to any of her original sleep studies done. I was able to check the CPAP machine and check her compliancy. On her current ResMed 11, the patient has a total of 105 days of data and she has used the machine 104 out of 1 of 5 days and she has achieved more than 4 hours of usage 100 out of 1 of 4 days. Her AHI is down to 0.3. She is been averaging 5.4 hours of APAP use per night with a leak of 18 L/min and the patient has a 95th percentile pressure of 13.5. She is using an Joyce fullface mask. She also has been monitoring her nighttime oxygen saturations by a watch device that she uses and based on the recording, she has been encountering some nocturnal oxygen saturations despite being on APAP therapy. The accuracy of those recordings need to be independently confirmed. Some limited improvement of daytime symptoms while being on APAP therapy although the patient does not seem to be fully recovered and she is still feeling chronically tired and fatigued. Her Muldrow score is at 19. Her comorbidities include diabetes mellitus with history of peripheral neuropathy, she has polycystic ovary syndrome, endometriosis, chronic anxiety and depression and history of hypertension. She is obese and she carries a body mass index of 39.4. Most of any modifications because of feeling drowsy or sleepy. Mostly paralysis. Hallucinations. No cataplexy. She has chronic neuropathy involving lower extremities with chronic restlessness in her legs. Review of Systems Constitutional: Reports daytime sleepiness, Reports fatigue Eyes: denies as per HPI, denies blurred vision, denies bulging eye, denies decreased vision, denies diplopia, denies discharge, denies dry eye, denies irritation, denies itching, denies pain, denies photophobia, denies loss of peripheral vision, denies loss of vision, denies tunnel vision/blind spots Ears: deny: decreased hearing, ear discharge, earache, tinnitus Ears, nose, mouth and throat: Reports as per HPI Breasts: absent: as per HPI, change in shape, gynecomastia, masses, nipple discharge, pain, skin changes, swelling Respiratory: Reports sleep apnea, Reports snoring Gastrointestinal: Reports as per HPI Genitourinary: Reports as per HPI Menstruation: Reports as per HPI Musculoskeletal: Reports as per HPI Musculoskeletal: absent: ankle pain, ankle stiffness, ankle swelling, as per HPI, elbow pain, elbow stiffness, elbow swelling, foot pain, foot stiffness, foot swelling, hand pain, hand stiffness, hand swelling, hip pain, hip stiffness, hip swelling, knee pain, knee stiffness, knee swelling, shoulder pain, shoulder stiffness, shoulder swelling, wrist pain, wrist stiffness, wrist swelling Integumentary: Reports as per HPI Neurological: Reports as per HPI Psychiatric: Reports sleep disturbances Endocrine: Reports as per HPI, Reports fatigue Hematologic/Lymphatic: Reports as per HPI Allergic/Immunologic: Reports as per HPI Past Medical History Past Medical History: Asthma, Diabetes Mellitus, Sleep Apnea/CPAP/BIPAP Additional Past Medical History / Comment(s): Peripheral neuropathy, endometriosis, chronic anxiety and depression, hypertension, rosacea History of Any Multi-Drug Resistant Organisms: None Reported Past Surgical History: Cholecystectomy, Orthopedic Surgery Additional Past Surgical History / Comment(s): left wrist surg. Past Anesthesia/Blood Transfusion Reactions: No Reported Reaction Past Psychological History: Anxiety, Depression Smoking Status: Former smoker Past Alcohol Use History: None Reported Past Drug Use History: None Reported - Past Family History Mother Family Medical History: No Reported History, Hyperlipidemia, Hypertension, Rheumatoid Arthritis (RA), Thyroid Disorder Father Family Medical History: Hyperlipidemia Sister(s) Family Medical History: Cancer Additional Family Medical History / Comment(s): non hodkins lymphoma Medications and Allergies Home Medications Medication Instructions Recorded Confirmed Type Citalopram Hydrobromide [CeleXA] 20 mg PO DAILY 05/28/23 02/27/25 History Diphenox-Atrop 2.5-0.025 mg 1 tab PO QID PRN 05/28/23 06/03/23 History [Lomotil] Empagliflozin [Jardiance] 25 mg PO DAILY 05/28/23 02/27/25 History Nf-Ashlyna Control 1 dose PO DIRECTED 05/28/23 02/27/25 History Spironolactone [Aldactone] 25 mg PO DAILY 05/28/23 02/27/25 History Acetaminophen Tab [Tylenol Tab] 1,000 mg PO Q6HR PRN #30 tablet 06/03/23 Rx Ibuprofen [Motrin] 600 mg PO Q8HR PRN #30 tab 06/03/23 Rx Simethicone [Gas-X] 125 mg PO AC-TID PRN #20 capsule 06/03/23 Rx Diphenoxylate HCl/Atropine 2.5 mg PO DAILY 02/27/25 02/27/25 History [Diphenoxylate HCl/Atropine 2.5-0.025] Semaglutide [Ozempic] 2 mg SQ WEEKLY 02/27/25 02/27/25 History Allergies Allergy/AdvReac Type Severity Reaction Status Date / Time Penicillins Allergy Anaphylaxis Verified 05/28/23 11:52 Sulfa (Sulfonamide Allergy Anaphylaxis Verified 05/28/23 11:52 Antibiotics) Physical Exam Vitals: Vital Signs Temp Pulse Resp BP Pulse Ox 02/27/25 16:14 98.4 F 104 H 16 150/77 97 Intake and Output 02/27/25 02/27/25 02/27/25 06:59 14:59 22:59 Other: Weight 114.305 kg Follow the patient appeared well nourished and normally developed. Vital signs as documented. The body mass index was 39.4. The patient has about a pedicle S4. Head exam is unremarkable. No scleral icterus or corneal arcus noted. Neck is without jugular venous distension, thyromegaly, or carotid bruits. Carotid upstrokes are brisk bilaterally. The patient's neck size is 16.5 inches. Lungs are clear to auscultation and percussion. Cardiac exam reveals the PMI to be normally sized and situated. Rhythm is regular. First and second heart sounds normal. No murmurs, rubs or gallops. Abdominal exam reveals normal bowel sounds, no masses, no organomegaly and no aortic enlargement. Extremities are nonedematous and both femoral and pedal pulses are normal. Examination of the skin revealed no evidence of significant rashes, suspicious appearing nevi or other concerning lesions. Neurologically, the patient is awake and alert and the patient does not have any focal neurological deficit. Cranial nerves are essentially intact. Assessment and Plan Plan: Obstructive sleep apnea, adequately treated with APAP, pressure settings are 5 to 15 cm of water and the patient demonstrated excellent compliancy and her AHI while on treatment is currently down to 0.3. She has been averaging around 5.4 hours of APAP therapy per night. Rule out nocturnal oxygen desaturations while being on APAP therapy. Obesity with a BMI of 39.4 Diabetes mellitus type 2, currently on Ozempic and Jardiance Endometriosis Diverticulosis Hypertension Chronic anxiety/depression maintained on citalopram Plan Continue APAP therapy at the same setting. No pressure adjustments is recommended. Keep the same mask interface and the patient has a Joyce fullface mask. Encourage weight loss and the patient is currently on Ozempic Continue citalopram Perform an overnight oximetry analysis to document adequacy of CPAP therapy and rule out any ongoing nocturnal oxygen saturations Will follow-up Sleep Note - Sleep Data ESS Total: 19 - Sleep Note Sleep Note: Temperature: 98.4 F Pulse Rate: 104 Respiratory Rate: 16 Blood Pressure: 150/77 SpO2: 97 Height: 5 ft 7 in Weight: 114.305 kg BMI: Neck Circumference: 16.5
== END ==
LOC: 3 N SLEEP 15:25
PROVIDERS: ATTEND Internal Medicine Critical Care Medicine
DX: K57.90 Diverticulosis of intestine, part unspecified, without perforation or abscess without bleeding (principal); G47.33 Obstructive sleep apnea (adult) (pediatric); E11.9 Type 2 diabetes mellitus without complications; N80.9 Endometriosis, unspecified; I10 Essential (primary) hypertension; F41.9 Anxiety disorder, unspecified; F32.A Depression, unspecified; Z87.891 Personal history of nicotine dependence; Z88.2 Allergy status to sulfonamides; Z88.0 Allergy status to penicillin
CPT/HCPCS: 99211

== ENCOUNTER 2025-04-09 05:03 | Emergency (ER) | payer BC ==
[2025-04-09 05:08] VITALS: BP 141/82; PULSE 91; RESP 18; TEMP 98.2
[2025-04-09] MEDS: FLUORESCEIN STRIPS 1 MG STRIP LEFT EYE ONE (06:20)
[2025-04-09] MEDS: PROPARACAINE 0.5% OPHTH DROPS 15 ML BTL LEFT EYE STA (06:20)
--- NOTE | 2025-04-09 06:26 | ED ---
Eye Problem HPI - General Chief complaint: Eye Problems Stated complaint: Eye Issues Time Seen by Provider: 04/09/25 06:16 Source: patient, RN notes reviewed Mode of arrival: ambulatory Limitations: no limitations - History of Present Illness Initial comments: 49-year-old female presents emergency department with left eye irritation. Patient states it was irritated for taking her contact out last night when she woke up in the middle of the night with increased discomfort, tearing and redness noted. Patient states it is very photophobic. She feels like something may be in her eye she states that she is dealt with pinkeye recently along with prior corneal abrasion. She does wear contacts. Patient denies any visual disturbance. Patient offers no complaints. - Related Data Home Medications Medication Instructions Recorded Confirmed Citalopram Hydrobromide [CeleXA] 20 mg PO DAILY 05/28/23 02/27/25 Diphenox-Atrop 2.5-0.025 mg 1 tab PO QID PRN 05/28/23 06/03/23 [Lomotil] Empagliflozin [Jardiance] 25 mg PO DAILY 05/28/23 02/27/25 Nf-Ashlyna Control 1 dose PO DIRECTED 05/28/23 02/27/25 Spironolactone [Aldactone] 25 mg PO DAILY 05/28/23 02/27/25 Diphenoxylate HCl/Atropine 2.5 mg PO DAILY 02/27/25 02/27/25 [Diphenoxylate HCl/Atropine 2.5-0.025] Semaglutide [Ozempic] 2 mg SQ WEEKLY 02/27/25 02/27/25 Previous Rx's Medication Instructions Recorded Acetaminophen Tab [Tylenol Tab] 1,000 mg PO Q6HR PRN #30 tablet 06/03/23 Ibuprofen [Motrin] 600 mg PO Q8HR PRN #30 tab 06/03/23 Simethicone [Gas-X] 125 mg PO AC-TID PRN #20 capsule 06/03/23 Allergies Allergy/AdvReac Type Severity Reaction Status Date / Time Penicillins Allergy Anaphylaxis Verified 04/09/25 05:08 Sulfa (Sulfonamide Allergy Anaphylaxis Verified 04/09/25 05:08 Antibiotics) Review of Systems ROS Statement: Those systems with pertinent positive or pertinent negative responses have been documented in the HPI. ROS Other: All systems not noted in ROS Statement are negative. Past Medical History Past Medical History: Asthma, Diabetes Mellitus, Sleep Apnea/CPAP/BIPAP Additional Past Medical History / Comment(s): Peripheral neuropathy, endometriosis, chronic anxiety and depression, hypertension, rosacea History of Any Multi-Drug Resistant Organisms: None Reported Past Surgical History: Cholecystectomy, Orthopedic Surgery Additional Past Surgical History / Comment(s): left wrist surg. Past Anesthesia/Blood Transfusion Reactions: No Reported Reaction Past Psychological History: Anxiety, Depression Smoking Status: Former smoker Past Alcohol Use History: None Reported Past Drug Use History: None Reported - Past Family History Mother Family Medical History: No Reported History, Hyperlipidemia, Hypertension, Rheumatoid Arthritis (RA), Thyroid Disorder Father Family Medical History: Hyperlipidemia Sister(s) Family Medical History: Cancer Additional Family Medical History / Comment(s): non hodkins lymphoma General Exam Limitations: no limitations General appearance: alert, in no apparent distress Head exam: Present: atraumatic, normocephalic, normal inspection Eye exam: Present: PERRL, EOMI, conjunctival injection, other (Patient had full relief with Paracaine eyedrops, there is fluorescein uptake in the central corne al region spiculated area). Absent: normal appearance, scleral icterus, periorbital swelling ENT exam: Present: normal exam, normal oropharynx, mucous membranes moist Neck exam: Present: normal inspection, full ROM. Absent: tenderness, meningismus, lymphadenopathy Respiratory exam: Present: normal lung sounds bilaterally. Absent: respiratory distress, wheezes, rales, rhonchi, stridor Cardiovascular Exam: Present: regular rate, normal rhythm, normal heart sounds. Absent: systolic murmur, diastolic murmur, rubs, gallop, clicks Course Vital Signs 04/09/25 05:06 Temperature 98.2 F Pulse Rate 91 Respiratory 18 Rate Blood Pressure 141/82 O2 Sat by Pulse 97 Oximetry Medical Decision Making - Medical Decision Making Was pt. sent in by a medical professional or institution (, PA, COMMUNICATIONS EQUIPMENT SUPERVISOR, urgent care, hospital, or detention...) When possible be specific @ -No Did you speak to anyone other than the patient for history (EMS, parent, family, police, friend...)? What history was obtained from this source @ -No Did you review nursing and triage notes (agree or disagree)? Why? @ -I reviewed and agree with nursing and triage notes Were old charts reviewed (outside hosp., previous admission, EMS record, old EKG, old radiological studies, urgent care reports/EKG's, detention records)? Report findings @ -No old charts were reviewed Differential Diagnosis (chest pain, altered mental status, abdominal pain women, abdominal pain men, vaginal bleeding, weakness, fever, dyspnea, syncope, headache, dizziness, GI bleed, back pain, seizure, CVA, palpatations, mental health, musculoskeletal)? @ -Conjunctivitis, corneal abrasion, corneal ulcer, this list is not all inclusive. EKG interpreted by me (3pts min.). @ -None X-rays interpreted by me (1pt min.). @ -None done CT interpreted by me (1pt min.). @ -None done U/S interpreted by me (1pt. min.). @ -None done What testing was considered but not performed or refused? (CT, X-rays, U/S, labs)? Why? @ -None What meds were considered but not given or refused? Why? @ -None Did you discuss the management of the patient with other professionals (professionals i.e. , PA, COMMUNICATIONS EQUIPMENT SUPERVISOR, lab, RT, psych nurse, social scientist, animal therapist, teacher, surveillance dual rate officer, mental health case manager)? Give summary @ -No Was smoking cessation discussed for >3mins.? @ -No Was critical care preformed (if so, how long)? @ -No Were there social determinants of health that impacted care today? How? (Homelessness, low income, unemployed, alcoholism, drug addiction, transportation, low edu. Level, literacy, decrease access to med. care, halfway, rehab)? @ -No Was there de-escalation of care discussed even if they declined (Discuss DNR or withdrawal of care, Hospice)? DNR status @ -No What co-morbidities impacted this encounter? (DM, HTN, Smoking, COPD, CAD, Cancer, CVA, ARF, Chemo, Hep., AIDS, mental health diagnosis, sleep apnea, morbid obesity)? @ -None Was patient admitted / discharged? Hospital course, mention meds given and route, prescriptions, significant lab abnormalities, going to OR and other pertinent info. @ -Charge patient has a corneal abrasion felt less likely to be corneal ulcer. Patient started on Tobrex eyedrops 1 drop every hour for the first 24 hours and 1 drop every 4 hours for the next 6 days patient was advised to follow-up with air traffic supervisor/master esthetician patient is advised not to wear contact lenses. Return parameters nicko. Patient's tetanus up-to-date. Undiagnosed new problem with uncertain prognosis? @ -No Drug Therapy requiring intensive monitoring for toxicity (Heparin, Nitro, Insulin, Cardizem)? @ -No Were any procedures done? @ -No Diagnosis/symptom? @Abrasion left Acute, or Chronic, or Acute on Chronic? @ -Acute Uncomplicated (without systemic symptoms) or Complicated (systemic symptoms)? @Uncomplicated Side effects of treatment? @ -No Exacerbation, Progression, or Severe Exacerbation? @ -No Poses a threat to life or bodily function? How? (Chest pain, USA, ID, pneumonia, PE, COPD, DKA, ARF, appy, cholecystitis, CVA, Diverticulitis, Homicidal, Suicidal, threat to staff... and all critical care pts) @ -No Disposition Clinical Impression: Corneal abrasion, left Disposition: HOME SELF-CARE Condition: Stable Instructions (If sedation given, give patient instructions): Corneal Abrasion (ED) Additional Instructions: Use Tobrex 1 drop every 1-2 hours for 24 hours, 1 drop every 4 hours for 6 days. Please return to the Emergency Department if symptoms worsen or any other concerns. Is patient prescribed a controlled substance at d/c from ED?: No Referrals: Baldomero Truong MD [Primary Care Provider] - 1-2 days Time of Disposition: 06:26
[2025-04-09] MEDS: TOBRAMYCIN 0.3% OPHTH DROPS 5 ML BTL LEFT EYE STA (06:35)
== END 2025-04-09 06:37 | disposition home or self-care (01) ==
LOC: EC 05:03
DX: S05.02XA Injury of conjunctiva and corneal abrasion without foreign body, left eye, initial encounter (principal); Z87.891 Personal history of nicotine dependence; Z88.2 Allergy status to sulfonamides; Z88.0 Allergy status to penicillin; X58.XXXA Exposure to other specified factors, initial encounter
CPT/HCPCS: 99283